=== PATIENT | female | born 2000 | race Caucasian/White ===

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

== ENCOUNTER 2020-04-05 06:35 | Inpatient (IN) | payer MEDICAID ==
[2020-04-05] MEDS ORDERED: Nalbuphine 10 MG/ML Syringe IVPUSH PRN (08:03)
[2020-04-05] MEDS ORDERED: Calcium Carbonate 500 MG Tab.Chew PO PRN (08:03)
[2020-04-05] MEDS ORDERED: Lidocaine 1% 50 ML MDV INJECT ONE (08:03)
[2020-04-05] MEDS ORDERED: Sodium Chloride 0.9% 10 ML Syringe FLUSH PRN (08:03)
[2020-04-05] MEDS ORDERED: Ondansetron 4 MG/2 ML SDV IVPUSH PRN (08:03)
[2020-04-05] MEDS ORDERED: Oxytocin/Lactated Ringers 10 UNIT/1,000 ML BAG IV SCH ×2 (08:15)
--- NOTE | 2020-04-05 08:19 | PCM.LDHP ---
L&D History of Present Illness - General Date of Service: 04/05/20 Admit Problem/Dx: Admission Diagnosis/Problem Admission Diagnosis/Problem 04/05/20 08:09 at 39+ weeks gestation. Encounter for induction of labor Source of Information: Patient History Limitations: Reports: No Limitations - History of Present Illness Introduction:: 19 yo at 39+2 weeks gestation presents for elective induction of labor due to being term. Her was complicated by threatened labor at about 34 weeks and did spend a couple of days in the hospital in [place] and received Betamethasone x 2 doses. She has continued to have intermittent contractions since then, but they settle on their own. She has had some febrile illnesses and has been tested for COVID-19 twice and both times has been negative. No known exposure to a positive case and no symptoms at this time. She has had some upper abdominal pain and GERD and I had started her on pantoprazole. She does have a history of asthma but only uses albuterol occasionally. She has received her Tdap and influenza vaccinations. SHe plans to breastfeed. She is having a boy determined by the [place] test and is wanting to have him circumcised. 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 Her partner was tested and was negative, so baby is low risk for developing the disease (1/54,000) Her labs show blood type O positive, antibody screen negative. Infectious disease screenings were negative. Repeat RPR at 28 weeks was negative. GBS test at 37 weeks was negative. - Related Data Allergies/Adverse Reactions: Allergies Allergy/AdvReac Type Severity Reaction Status Date / Time Penicillins Allergy Intermediate Hives Verified 04/05/20 07:50 Home Medications: Home Meds Albuterol [Ventolin HFA] 1 inh INH ASDIRECTED PRN 10/30/18 [History] Pnv No.103/Folic/Om3s/Fish Oil [ Gummies] 1 each PO DAILY 12/28/19 [ History] Past Medical History - Past Health History Medical/Surgical History: Denies Medical/Surgical History Cardiovascular History: Reports: None, Other (See Below) (She has had episodes of rapid HR and Holter monitor showed only sinus tachycardia. 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: , Spontaneous : 1 Para: 0 Musculoskeletal History: Reports: None Neurological History: Reports: None Psychiatric History: Reports: Anxiety, Bipolar, Depression Endocrine/Metabolic History: Reports: None Hematologic History: Reports: None Immunologic History: Reports: None Oncologic (Cancer) History: Reports: None Dermatologic History: Reports: None - Infectious Disease History Infectious Disease History: Reports: None - Past Surgical History Head Surgeries/Procedures: Reports: None HEENT Surgical History: Reports: Oral Surgery Social & Family History - Family History Family Medical History: Noncontributory - Tobacco Use Smoking Status *Q: Never Smoker Tobacco Use Within Last Twelve Months: No - Caffeine Use Caffeine Use: Reports: Coffee Other Caffeine Use: de caf - Recreational Drug Use Recreational Drug Use: No Drug Use in Last 12 Months: No - Living Situation & Occupation Living situation: Reports: Single, Other (with a roomate) Occupation: Employed ([employer]) H&P Review of Systems - Review of Systems: Review Of Systems: See Below General: Reports: No Symptoms HEENT: Reports: No Symptoms Pulmonary: Reports: No Symptoms Cardiovascular: Reports: No Symptoms Gastrointestinal: Reports: No Symptoms Genitourinary: Reports: No Symptoms Musculoskeletal: Reports: No Symptoms Skin: Reports: No Symptoms Psychiatric: Reports: Anxiety Neurological: Reports: No Symptoms Hematologic/Lymphatic: Reports: No Symptoms Immunologic: Reports: No Symptoms L&D Exam - Exam Exam: See Below - Vital Signs Vital Signs: Last Vital Signs Temp 36.6 C 04/05/20 06:53 Pulse 102 H 04/05/20 06:53 Resp 16 04/05/20 06:53 BP 102/78 04/05/20 06:53 Pulse Ox 99 04/05/20 06:53 Weight: 59.874 kg - OB Specific Contraction Duration (sec): 60 Contraction Frequency (min): 5-7 Contraction Intensity: Mild Movement: Active Heart Tones: Present Heart Tones per Min: 130 Heart Rate (FHR) Variability: Moderate (6-25 bmp) Presentation: Vertex Estimated Weight: 7 lb - Rosales Score Rosales Score Cervix Position: Midposition Rosales Score Consistency: Soft Rosales Score Effacement: >80% Rosales Score Dilation: 3-4 cm Rosales Score 's Station: -1 ,0 Rosales Score Total: 10 - Exam General: Alert, Oriented HEENT: Conjunctiva Clear, Mucosa Moist & [place], Pupils Equal Neck: Supple, Trachea Midline Lungs: Normal Respiratory Effort Cardiovascular: Regular Rate, Regular Rhythm GI/Abdominal Exam: Soft Rectal Exam: Deferred Genitourinary: Normal external exam Back Exam: Normal Inspection, Full Range of Motion Extremities: Normal Inspection, Normal Range of Motion, No Pedal Edema Skin: Warm, Dry, Intact Neurological: Cranial Nerves Intact Psychiatric: Alert, Anxious - Problem List (1) 39 weeks gestation of SNOMED Code(s): 53796707 ICD Code: Z3A.39 - 39 WEEKS GESTATION OF Status: Acute Current Visit: Yes (2) Encounter for elective induction of labor SNOMED Code(s): 307186270 ICD Code: Z34.90 - ENCNTR FOR SUPRVSN OF NORMAL , UNSP, UNSP TRIMESTER Status: Acute Current Visit: Yes (3) Asthma SNOMED Code(s): 328483052 ICD Code: J45.909 - UNSPECIFIED ASTHMA, UNCOMPLICATED Status: Acute Current Visit: Yes (4) Anxiety SNOMED Code(s): 06057340 ICD Code: F41.9 - ANXIETY DISORDER, UNSPECIFIED Status: Acute Current Visit: Yes Problem List Initiated/Reviewed/Updated: Yes Orders Last 24hrs: Active Orders 24 hr Category Date Time Status Activity as Tolerated [RC] PFP Care 04/05/20 08:03 Ordered Communication Order [RC] ASDIRECTED Care 04/05/20 08:03 Ordered Heart Tones [RC] ASDIRECTED Care 04/05/20 08:03 Ordered Non Stress Test [RC] PER UNIT ROUTINE Care 04/05/20 08:03 Ordered Intake and Output [RC] QSHIFT Care 04/05/20 08:04 Ordered Notify Provider [RC] PFP Care 04/05/20 08:03 Ordered Notify Provider [RC] PRN Care 04/05/20 08:03 Ordered Peripheral IV Care [RC] . DIRECTED Care 04/05/20 08:03 Ordered Vital Signs [RC] PER UNIT ROUTINE Care 04/05/20 08:03 Ordered Regular Diet [DIET] Diet 04/05/20 Breakfast Ordered CBC W/O DIFF,HEMOGRAM [HEME] Stat Lab 04/05/20 08:03 Ordered RAPID PLASMA REAGIN,RPR [CHEM] Routine Lab 04/05/20 08:03 Ordered Calcium Carbonate [Tums] Med 04/05/20 08:03 Ordered 1,000 mg PO Q2H PRN Lactated Ringers [Ringers, Lactated] 1,000 ml Med 04/05/20 08:15 Ordered IV ASDIRECTED Lidocaine 1% [Xylocaine 1%] Med 04/05/20 08:03 Once 20 ml INJECT ONETIME ONE Nalbuphine [Nubain] Med 04/05/20 08:03 Ordered 10 mg IVPUSH Q2H PRN Ondansetron [Zofran] Med 04/05/20 08:03 Ordered 4 mg IVPUSH Q4H PRN Oxytocin/Lactated Ringers [Pitocin in LR 10 Units/1,000 Med 04/05/20 08:15 Ordered ML] 10 unit in 1,000 ml IV .CONTINUOUS Oxytocin/Lactated Ringers [Pitocin in LR 10 Units/1,000 Med 04/05/20 08:15 Ordered ML] 10 unit in 1,000 ml IV TITRATE Pantoprazole [ProTONIX] Med 04/05/20 09:00 Ordered 40 mg PO DAILY Sodium Chloride 0.9% [Saline Flush] Med 04/05/20 08:03 Ordered 10 ml FLUSH ASDIRECTED PRN Electronic Heart Tones Ext w TOCO [WOMSER] Ot 04/05/20 08:03 Ordered Routine Electronic Heart Tones Internal [WOMSER] Per Unit Ot 04/05/20 08:03 Ordered Routine Peripheral IV Insertion Adult [OM.PC] Routine Ot 04/05/20 08:03 Ordered Telemetry Monitoring [WOMSER] Routine Ot 04/05/20 08:03 Ordered Resuscitation Status Routine Resus Stat 04/05/20 08:03 Ordered Medication Orders Calcium Carbonate/Glycine (Tums) 1,000 mg PO Q2H PRN PRN Reason: Indigestion Lactated Ringer's (Ringers, Lactated) 1,000 mls @ 100 mls/hr IV ASDIRECTED SERVANDO Oxytocin/Lactated Ringer's (Pitocin In Lr 10 Units/1,000 Ml) 10 unit in 1,000 mls @ 12 mls/hr IV TITRATE SERVANDO; Protocol Oxytocin/Lactated Ringer's (Pitocin In Lr 10 Units/1,000 Ml) 10 unit in 1,000 mls @ 500 mls/hr IV .CONTINUOUS SERVANDO Lidocaine HCl (Xylocaine 1%) 20 ml INJECT ONETIME ONE Stop: 04/05/20 08:04 Nalbuphine HCl (Nubain) 10 mg IVPUSH Q2H PRN PRN Reason: Pain Ondansetron HCl (Zofran) 4 mg IVPUSH Q4H PRN PRN Reason: Nausea/Vomiting Pantoprazole Sodium (Protonix) 40 mg PO DAILY SERVANDO Sodium Chloride (Saline Flush) 10 ml FLUSH ASDIRECTED PRN PRN Reason: Keep Vein Open Assessment/Plan Comment:: 19 yo at 39+2 weeks gestation admitted for elective induction of labor. She has a favorable cervix. She is having some mild contractions, about every 5 to 7 minutes, but they are not painful for her. Baby has been active. NST is reactive. GBS is negative. Blood type O+. Plan: Pitocin induction of labor. Will plan AROM to augment once having a good contraction pattern. Expectant management of labor. Anticipate vaginal delivery. Plan for skin to skin after delivery and . Parents requesting circumcision on baby.
[2020-04-05] MEDS: Lactated Ringers 1,000 ML IV SCH ×3 (08:21→15:15)
[2020-04-05] MEDS ORDERED: Albuterol 6.7 GM Inhaler INH PRN (08:32)
[2020-04-05] MEDS ORDERED: Pantoprazole 40 MG Tab.CR PO SCH (09:00)
--- NOTE | 2020-04-05 12:44 | PCM.PNLD ---
Labor Progress Note - VS & Meds Vital Signs: Last Vital Signs Temp 36.6 C 04/05/20 06:53 Pulse 102 H 04/05/20 06:53 Resp 16 04/05/20 06:53 BP 102/78 04/05/20 06:53 Pulse Ox 99 04/05/20 06:53 Active Medications: Current Medications Albuterol (Proventil Hfa) 0 gm INH Q4H PRN PRN Reason: Shortness of Breath Calcium Carbonate/Glycine (Tums) 1,000 mg PO Q2H PRN PRN Reason: Indigestion Lactated Ringer's (Ringers, Lactated) 1,000 mls @ 100 mls/hr IV ASDIRECTED SERVANDO Last Admin: 04/05/20 08:21 Dose: 100 mls/hr Oxytocin/Lactated Ringer's (Pitocin In Lr 10 Units/1,000 Ml) 10 unit in 1,000 mls @ 12 mls/hr IV TITRATE SERVANDO; Protocol Last Titration: 04/05/20 11:13 Dose: 10 munits/min, 60 mls/hr Oxytocin/Lactated Ringer's (Pitocin In Lr 10 Units/1,000 Ml) 10 unit in 1,000 mls @ 500 mls/hr IV .CONTINUOUS SERVANDO Nalbuphine HCl (Nubain) 10 mg IVPUSH Q2H PRN PRN Reason: Pain Ondansetron HCl (Zofran) 4 mg IVPUSH Q4H PRN PRN Reason: Nausea/Vomiting Pantoprazole Sodium (Protonix) 40 mg PO DAILY SERVANDO Last Admin: 04/05/20 09:03 Dose: Not Given Sodium Chloride (Saline Flush) 10 ml FLUSH ASDIRECTED PRN PRN Reason: Keep Vein Open Discontinued Medications Lidocaine HCl (Xylocaine 1%) 20 ml INJECT ONETIME ONE Stop: 04/05/20 08:04 - Uterine Contractions Uterine Monitoring Mode: External [place] Contraction Frequency (min): 2 to 4 Contraction Duration (sec): 60 Contraction Intensity: Mild to Moderate Uterine Resting Tone: Soft - Monitoring Monitor Mode: External Ultrasound Heart Rate (FHR) Baseline: 135 Heart Rate (FHR) Variability: Moderate (6-25 bmp) Accelerations: Present, 15x15 Decelerations: None Strip Review: Category I - Vaginal Exam Dilation (cm): 3-4 cm Effacement (Percent): 80 Station: -1 Cervical Position: Midposition Sterile Vaginal Exam Performed By: Honey Coreas - Labor Progress (Free Text) Labor Progress: Patient feels that the contractions are getting stronger, but still tolerable. She doesn't have to breathe through them. She has been up on the ball. monitor has been Category I. Contractions are 2-4 minutes apart. AROM performed at about 1230 for moderate amount of clear fluid. Cervix 3-4 cm , 80% effaced and station -1. A: Latent phase of labor, fetus is tolerating labor. P: AROM to augment labor. Pitocin currently at 10 mU/min. Expectant management of labor. Epidural if patient requests. Anticipate vaginal delivery.
[2020-04-05] MEDS ORDERED: Bupivacaine/fentaNYL/NS 100 ML Bag EPIDUR SCH (13:45)
[2020-04-05] MEDS ORDERED: diphenhydrAMINE 50 MG/ML SDV IVPUSH PRN (13:46)
[2020-04-05] MEDS ORDERED: fentaNYL 100 MCG/2 ML SDV EPIDUR PRN (13:46)
[2020-04-05] MEDS ORDERED: Bupivacaine/fentaNYL/NS 100 ML Bag EPIDUR PRN (13:46)
[2020-04-05] MEDS ORDERED: ePHEDrine 50 MG/ML SDV IVPUSH PRN (13:46)
--- NOTE | 2020-04-05 14:33 | PCM.PREANE ---
Preanesthetic Assessment - Procedure Proposed Procedure: TAN - Anesthesia/Transfusion/Family Hx Anesthesia History: Prior Anesthesia Without Reaction Family History of Anesthesia Reaction: No Transfusion History: No Prior Transfusion(s) - Review of Systems General: No Symptoms Pulmonary: No Symptoms Cardiovascular: No Symptoms Gastrointestinal: No Symptoms Neurological: No Symptoms Other: Reports: None - Physical Assessment Vital Signs: Last Vital Signs Temp 36.6 C 04/05/20 06:53 Pulse 102 H 04/05/20 06:53 Resp 16 04/05/20 06:53 BP 102/78 04/05/20 06:53 Pulse Ox 99 04/05/20 06:53 Height: 1.7 m Weight: 59.874 kg ASA Class: 2 Mental Status: Alert & Oriented x3 Airway Class: Mallampati = 1 Dentition: Reports: Normal Dentition Thyro-Mental Finger Breadths: 3 Mouth Opening Finger Breadths: 3 ROM/Head Extension: Full Lungs: Clear to Auscultation, Normal Respiratory Effort Cardiovascular: Regular Rate, Regular Rhythm - Lab Values: Laboratory Last Values WBC 8.92 K/mm3 (3.98-10.04) 04/05/20 08:16 RBC 3.28 M/mm3 (3.98-5.22) L 04/05/20 08:16 Hgb 9.7 gm/dl (11.2-15.7) L D 04/05/20 08:16 Hct 29.4 % (34.1-44.9) L 04/05/20 08:16 MCV 89.6 fl (79.4-94.8) 04/05/20 08:16 MCH 29.6 pg (25.6-32.2) 04/05/20 08:16 MCHC 33.0 g/dl (32.2-35.5) 04/05/20 08:16 RDW Std Deviation 40.7 fL (36.4-46.3) 04/05/20 08:16 Plt Count 264 K/mm3 (182-369) 04/05/20 08:16 MPV 10.4 fl (9.4-12.3) 04/05/20 08:16 - Allergies Allergies/Adverse Reactions: Allergies Allergy/AdvReac Type Severity Reaction Status Date / Time Penicillins Allergy Intermediate Hives Verified 04/05/20 07:50 - Acknowledgements Anesthesia Type Planned: Epidural Pt an Appropriate Candidate for the Planned Anesthesia: Yes Alternatives and Risks of Anesthesia Discussed w Pt/Guardian: Yes Pt/Guardian Understands and Agrees with Anesthesia Plan: Yes PreAnesthesia Questionnaire - Past Health History Medical/Surgical History: Denies Medical/Surgical History Cardiovascular History: Reports: None, Other (See Below) (She has had episodes of rapid HR and Holter monitor showed only sinus tachycardia. 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 It is good for 3 years she reports will not have to be changed until 2019 Musculoskeletal History: Reports: None Neurological History: Reports: None Psychiatric History: Reports: Anxiety, Bipolar, Depression Endocrine/Metabolic History: Reports: None Hematologic History: Reports: None Immunologic History: Reports: None Oncologic (Cancer) History: Reports: None Dermatologic History: Reports: None - Infectious Disease History Infectious Disease History: Reports: None - Past Surgical History Head Surgeries/Procedures: Reports: None HEENT Surgical History: Reports: Oral Surgery - SUBSTANCE USE Smoking Status *Q: Never Smoker Tobacco Use Within Last Twelve Months: No Second Hand Smoke Exposure: No Recreational Drug Use History: No - HOME MEDS Home Medications: Home Meds Albuterol [Ventolin HFA] 1 inh INH ASDIRECTED PRN 10/30/18 [History] Pnv No.103/Folic/Om3s/Fish Oil [ Gummies] 1 each PO DAILY 12/28/19 [ History] - CURRENT (IN HOUSE) MEDS Current Meds: Current Medications Albuterol (Proventil Hfa) 0 gm INH Q4H PRN PRN Reason: Shortness of Breath Calcium Carbonate/Glycine (Tums) 1,000 mg PO Q2H PRN PRN Reason: Indigestion Diphenhydramine HCl (Benadryl) 25 mg IVPUSH Q6H PRN PRN Reason: pruritis Ephedrine Sulfate (Ephedrine Sulfate) 5 mg IVPUSH ASDIRECTED PRN PRN Reason: Hypotension Fentanyl (Sublimaze) 100 mcg EPIDUR Q3H PRN PRN Reason: Pain Last Admin: 04/05/20 13:55 Dose: 100 mcg Fentanyl/Bupivacaine HCl (Fentanyl/Bupivacaine/Ns 2 Mcg-0.125% 100 Ml) 100 ml EPIDUR ASDIRECTED PRN PRN Reason: Pain Last Admin: 04/05/20 13:56 Dose: 100 ml Lactated Ringer's (Ringers, Lactated) 1,000 mls @ 100 mls/hr IV ASDIRECTED SERVANDO Last Admin: 04/05/20 13:52 Dose: 100 mls/hr Oxytocin/Lactated Ringer's (Pitocin In Lr 10 Units/1,000 Ml) 10 unit in 1,000 mls @ 12 mls/hr IV TITRATE SERVANDO; Protocol Last Titration: 04/05/20 11:13 Dose: 10 munits/min, 60 mls/hr Oxytocin/Lactated Ringer's (Pitocin In Lr 10 Units/1,000 Ml) 10 unit in 1,000 mls @ 500 mls/hr IV .CONTINUOUS SERVANDO Nalbuphine HCl (Nubain) 10 mg IVPUSH Q2H PRN PRN Reason: Pain Ondansetron HCl (Zofran) 4 mg IVPUSH Q4H PRN PRN Reason: Nausea/Vomiting Pantoprazole Sodium (Protonix) 40 mg PO DAILY [facility] Last Admin: 04/05/20 09:03 Dose: Not Given Sodium Chloride (Saline Flush) 10 ml FLUSH ASDIRECTED PRN PRN Reason: Keep Vein Open Discontinued Medications Fentanyl/Bupivacaine HCl (Fentanyl/Bupivacaine/Ns 2 Mcg-0.125% 100 Ml) 100 ml EPIDUR ASDIRECTED [facility] Lidocaine HCl (Xylocaine 1%) 20 ml INJECT ONETIME ONE Stop: 04/05/20 08:04
[2020-04-05] MEDS ORDERED: Lidocaine 1% 50 ML MDV ONE (17:34)
[2020-04-05] MEDS ORDERED: Docusate Sodium 100 MG Cap PO PRN (18:31)
[2020-04-05] MEDS ORDERED: Simethicone 80 MG Tab.Chew PO PRN (18:31)
[2020-04-05] MEDS ORDERED: Benzocaine/Menthol 20%-0.5% Spray 56 GM Canister TOP PRN (18:31)
[2020-04-05] MEDS ORDERED: Acetaminophen 325 MG Tab PO PRN (18:31)
[2020-04-05] MEDS ORDERED: Aluminum Hydroxide/Magnesium Hydroxide/Simethicone Susp 30 ML Cup PO PRN (18:31)
[2020-04-05] MEDS ORDERED: Witch Hazel Medicated Pads 40/Jar TOP PRN (18:31)
--- NOTE | 2020-04-05 18:39 | PCM.DEL ---
L & D Note - General Info Date of Service: 04/05/20 Mother's Due Date: 04/10/20 - Delivery Note Labor: Induced by Oxytocin Delivery Outcome: Livebirth Delivery Method: Spontaneous Vaginal Delivery-Single Infant Delivery Mode: Spontaneous Presentation: Left Occiput Anterior (ARLETH) Nuchal Cord: Present Prep: Povidone-Iodine (Betadine Anesthesia Type: Epidural Amniotic Fluid Description: Clear Episiotomy Type: None Laceration: 2nd Degree, Labial (Right labial) Suture type: Vicryl Suture size: 4-0 (4-0 on labial tear) Placenta: Intact, Spontaneous Cord: 3 Vessels Estimated Blood Loss: 300 Resuscitation Needed: No : Bulb Syringe, Stimulated, Warmed, [place] Used Provider: Honey Coreas Score 1 min: 8 Score 5 min: 9 Delivery Comments (Free Text/Narrative):: 19 yo at 39+2 weeks gestation presents for elective induction of labor due to being term. Her was complicated by threatened labor at about 34 weeks and did spend a couple of days in the hospital in [place] and received Betamethasone x 2 doses. She has continued to have intermittent contractions since then, but they settle on their own. She has had some febrile illnesses and has been tested for COVID-19 twice and both times has been negative. No known exposure to a positive case and no symptoms at this time. She has had some upper abdominal pain and GERD and I had started her on pantoprazole. She does have a history of asthma but only uses albuterol occasionally. She has received her Tdap and influenza vaccinations. SHe plans to breastfeed. She is having a boy determined by the [employer] test and is wanting to have him circumcised. 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 Her partner was tested and was negative, so baby is low risk for developing the disease (1/54,000) Her labs show blood type O positive, antibody screen negative. Infectious disease screenings were negative. Repeat RPR at 28 weeks was negative. GBS test at 37 weeks was negative. She was started on pitocin induction per protocol shortly after 8:00 am, AROM was performed at 1230 to augment labor. Moderate amount of clear fluid drained. Her pitocin was at 10 mU/min at that time. Her contractions increased in intensity and regularity with that and she requested an epidural. Epidural was placed and dosed at 1415. Her pitocin was decreased to 6 mU/min due to hyperstimulation. She had good relief with the epidural and progressed well. Fetus tolerated 1st stage of labor. She was completely dilated at 1705 and I was called in. We got her prepped and started pushing at 1718. She pushed very well and baby tolerated second stage of labor. Head delivered from ARLETH presentation and there was a loose nuchal cord that easily slipped over baby 's head. The shoulders delivered without any difficulty. Time of delivery was 1727 and it was baby boy. He was dried and stimulated and the mouth and nose were suctioned with bulb suction. He cried at the perineum. He was placed skin to skin on mother's abdomen and once the cord stopped pulsating, the clamp was placed and cord was cut. Apgars were 8 and 9 at 1 and 5 minutes respectively. Baby weighed 7 lb 1 oz (3210 grams). Placenta delivered spontaneously at 1731. It was intact and there were 3 vessels in the cord. Uterus firmed down nicely. Pitocin infusion was started after delivery of the baby. There was a second degree perineal laceration that was repaired in the usual manner with 3-0 vicryl. There was also a right labial tear that was repaired with 4-0 vicryl in a running subcuticular stitch. Bimanual exam was performed after repair was complete and some blood clots were expressed from the uterus and it was firm. EBL 300 ml. Both Mom and baby were left in the delivery room in stable condition. Mom plans to breastfeed. Induction Criteria - Rosales Score Rosales Score Dilation: 3-4 cm Rosales Score Effacement: >80% Rosales Score 's Station: -1 ,0 Rosales Score Consistency: Soft Rosales Score Cervix Position: Midposition Rosales Score Total: 10 Rosales Score Presenting Part: Reports: Cephalic - Induction Gestational Age >/= 39 wks: Yes Estimated Pelvis: Reports: Adequate Reassuring Monitoring Strip: Yes Absence of Tachy Systole: Yes - General Info Date of Service: 04/05/20 Admission Dx/Problem (Free Text): Admission Diagnosis/Problem Admission Diagnosis/Problem 04/05/20 08:09 at 39+ weeks gestation. Encounter for induction of labor - Review of Systems General: Reports: No Symptoms HEENT: Reports: No Symptoms Pulmonary: Reports: No Symptoms Cardiovascular: Reports: No Symptoms Gastrointestinal: Reports: No Symptoms Genitourinary: Reports: No Symptoms Musculoskeletal: Reports: No Symptoms Skin: Reports: No Symptoms Neurological: Reports: No Symptoms Psychiatric: Reports: No Symptoms - Patient Data Vitals - Most Recent: Last Vital Signs Temp 36.6 C 04/05/20 06:53 Pulse 102 H 04/05/20 06:53 Resp 16 04/05/20 06:53 BP 102/78 04/05/20 06:53 Pulse Ox 99 04/05/20 06:53 Weight - Most Recent: 59.874 kg I&O - Last 24 Hours: Intake & Output 04/05/20 04/05/20 04/05/20 06:59 14:59 22:59 Intake Total 120 Balance 120 Lab Results Last 24 Hours: Laboratory Results - last 24 hr 04/05/20 Range/Units 08:16 WBC 8.92 (3.98-10.04) K/mm3 RBC 3.28 L (3.98-5.22) M/mm3 Hgb 9.7 L D (11.2-15.7) gm/dl Hct 29.4 L (34.1-44.9) % MCV 89.6 (79.4-94.8) fl MCH 29.6 (25.6-32.2) pg MCHC 33.0 (32.2-35.5) g/dl RDW Std Deviation 40.7 (36.4-46.3) fL Plt Count 264 (182-369) K/mm3 MPV 10.4 (9.4-12.3) fl Med Orders - Current: Current Medications Albuterol (Proventil Hfa) 0 gm INH Q4H PRN PRN Reason: Shortness of Breath Calcium Carbonate/Glycine (Tums) 1,000 mg PO Q2H PRN PRN Reason: Indigestion Diphenhydramine HCl (Benadryl) 25 mg IVPUSH Q6H PRN PRN Reason: pruritis Ephedrine Sulfate (Ephedrine Sulfate) 5 mg IVPUSH ASDIRECTED PRN PRN Reason: Hypotension Fentanyl (Sublimaze) 100 mcg EPIDUR Q3H PRN PRN Reason: Pain Last Admin: 04/05/20 13:55 Dose: 100 mcg Fentanyl/Bupivacaine HCl (Fentanyl/Bupivacaine/Ns 2 Mcg-0.125% 100 Ml) 100 ml EPIDUR ASDIRECTED PRN PRN Reason: Pain Last Admin: 04/05/20 13:56 Dose: 100 ml Lactated Ringer's (Ringers, Lactated) 1,000 mls @ 100 mls/hr IV ASDIRECTED SERVANDO Last Admin: 04/05/20 15:15 Dose: 100 mls/hr Oxytocin/Lactated Ringer's (Pitocin In Lr 10 Units/1,000 Ml) 10 unit in 1,000 mls @ 12 mls/hr IV TITRATE SERVANDO; Protocol Last Titration: 04/05/20 15:15 Dose: 8 munits/min, 48 mls/hr Oxytocin/Lactated Ringer's (Pitocin In Lr 10 Units/1,000 Ml) 10 unit in 1,000 mls @ 500 mls/hr IV .CONTINUOUS SERVANDO Nalbuphine HCl (Nubain) 10 mg IVPUSH Q2H PRN PRN Reason: Pain Ondansetron HCl (Zofran) 4 mg IVPUSH Q4H PRN PRN Reason: Nausea/Vomiting Pantoprazole Sodium (Protonix) 40 mg PO DAILY SERV[facility]O Last Admin: 04/05/20 09:03 Dose: Not Given Sodium Chloride (Saline Flush) 10 ml FLUSH ASDIRECTED PRN PRN Reason: Keep Vein Open Discontinued Medications Fentanyl/Bupivacaine HCl (Fentanyl/Bupivacaine/Ns 2 Mcg-0.125% 100 Ml) 100 ml EPIDUR ASDIRECTED [facility] Lidocaine HCl (Xylocaine 1%) 20 ml INJECT ONETIME ONE Stop: 04/05/20 08:04 Lidocaine HCl (Xylocaine 1%) Confirm Administered Dose 50 ml .ROUTE .STK-MED ONE Stop: 04/05/20 17:35 - Exam General: Alert, Oriented, No Acute Distress HEENT: Pupils Equal, Mucous Membr. Moist/Anita Neck: Supple Lungs: Normal Respiratory Effort Cardiovascular: Regular Rate, Regular Rhythm GI/Abdominal Exam: Normal Bowel Sounds (Female) Exam: Normal Bimanual Exam, Vaginal Bleeding Back Exam: Normal Inspection, Full Range of Motion Extremities: Normal Inspection, Normal Range of Motion, Non-Tender, No Pedal Edema Skin: Warm, Dry, Intact Neurological: No New Focal Deficit Psy/Mental Status: Alert, Normal Affect, Normal Mood - Problem List & Annotations (1) 39 weeks gestation of SNOMED Code(s): 68010527 Code(s): Z3A.39 - 39 WEEKS GESTATION OF Status: Acute Current Visit: Yes (2) Encounter for elective induction of labor SNOMED Code(s): 799690607 Code(s): Z34.90 - ENCNTR FOR SUPRVSN OF NORMAL , UNSP, UNSP TRIMESTER Status: Acute Current Visit: Yes (3) Asthma SNOMED Code(s): 795155856 Code(s): J45.909 - UNSPECIFIED ASTHMA, UNCOMPLICATED Status: Acute Current Visit: Yes (4) Anxiety SNOMED Code(s): 79727750 Code(s): F41.9 - ANXIETY DISORDER, UNSPECIFIED Status: Acute Current Visit: Yes (5) Normal spontaneous vaginal delivery SNOMED Code(s): 69866227, 116093934 Code(s): O80 - ENCOUNTER FOR FULL-TERM UNCOMPLICATED DELIVERY Status: Acute Current Visit: Yes (6) Breast feeding status of mother SNOMED Code(s): 236614523 Code(s): Z39.1 - ENCOUNTER FOR CARE AND EXAMINATION OF LACTATING MOTHER Status: Acute Current Visit: Yes - Problem List Review Problem List Initiated/Reviewed/Updated: Yes - My Orders Last 24 Hours: My Active Orders 04/05/20 08:03 Activity as Tolerated [RC] PFP Communication Order [RC] ASDIRECTED Heart Tones [RC] ASDIRECTED Non Stress Test [RC] PER UNIT ROUTINE Notify Provider [RC] PFP Notify Provider [RC] PRN Peripheral IV Care [RC] . DIRECTED Vital Signs [RC] PER UNIT ROUTINE Calcium Carbonate [Tums] 1,000 mg PO Q2H PRN Nalbuphine [Nubain] 10 mg IVPUSH Q2H PRN Ondansetron [Zofran] 4 mg IVPUSH Q4H PRN Sodium Chloride 0.9% [Saline Flush] 10 ml FLUSH ASDIRECTED PRN Electronic Heart Tones Ext w TOCO [WOMSER] Routine Electronic Heart Tones Internal [WOMSER] Per Unit Routine Peripheral IV Insertion Adult [OM.PC] Routine Telemetry Monitoring [WOMSER] Routine Resuscitation Status Routine 04/05/20 08:04 Intake and Output [RC] QSHIFT 04/05/20 08:15 Lactated Ringers [Ringers, Lactated] 1,000 ml IV ASDIRECTED Oxytocin/Lactated Ringers [Pitocin in LR 10 Units/1,000 ML] 10 unit in 1,000 ml IV .CONTINUOUS Oxytocin/Lactated Ringers [Pitocin in LR 10 Units/1,000 ML] 10 unit in 1,000 ml IV TITRATE 04/05/20 08:16 RAPID PLASMA REAGIN,RPR [CHEM] Routine 04/05/20 08:32 Albuterol [Proventil HFA] See Dose Instructions INH Q4H PRN 04/05/20 08:33 RT Post Treatment Assessment [RC] Click to Edit RT Pre-Treatment Assessment [RC] Click to Edit 04/05/20 09:00 Pantoprazole [ProTONIX] 40 mg PO DAILY 04/05/20 18:11 Patient Status Manage Transfer [TRANSFER] Routine 04/05/20 Breakfast Regular Diet [DIET] - Assessment Assessment:: Normal spontaneous vaginal delivery. Stable. Plans to breast feed. GBS negative. - Plan Plan:: 19 yo at 39+2 weeks gestation admitted for elective induction of labor. She has a favorable cervix. She is having some mild contractions, about every 5 to 7 minutes, but they are not painful for her. Baby has been active. NST is reactive. GBS is negative. Blood type O+. Pitocin induction with AROM to augment. Epidural gave good analgesia. Spontaneous vaginal delivery at 1727 for healthy baby boy with weight of 7 lb 1 oz. Plan: 1. Routine care 2. Mom plans to breastfeed, but has inverted nipples. Baby did latch and nurse in the delivery room.
[2020-04-05] MEDS: Ibuprofen 800 MG Tab PO PRN (22:23)
[2020-04-06] MEDS ORDERED: Prenatal Multivitamin with Calcium/Folic Acid/Iron Tab PO SCH (09:00)
--- NOTE | 2020-04-06 09:39 | PCM48HPAN ---
Post Anesthesia Note - EVALUATION WITHIN 48HRS OF ANESTHETIC Vital Signs in Normal Range: Yes Patient Participated in Evaluation: Yes Respiratory Function Stable: Yes Airway Patent: Yes Cardiovascular Function Stable: Yes Hydration Status Stable: Yes Pain Control Satisfactory: Yes Nausea and Vomiting Control Satisfactory: Yes Mental Status Recovered: Yes Vital Signs: Last Vital Signs Temp 36.4 C 04/06/20 04:43 Pulse 83 04/06/20 04:43 Resp 14 04/06/20 04:43 BP 101/59 L 04/06/20 04:43 Pulse Ox 100 04/06/20 04:43 - COMMENTS/OBSERVATIONS Free Text/Narrative:: Epidural worked well. Minimal soreness at insertions site. Legs good motor movement and sensation. Denies Headache.
--- NOTE | 2020-04-06 10:18 | PCM.PNPP ---
- General Info Date of Service: 04/06/20 Admission Dx/Problem (Free Text): Admission Diagnosis/Problem Admission Diagnosis/Problem 04/05/20 08:09 at 39+ weeks gestation. Encounter for induction of labor Subjective Update: Patient is doing well, SHe passed a couple of clots last night, but none this am. Voiding well. Eating and ambulating well. Has some cramping that is relieved with ibuprofen. She is bonding well with baby and working on . Has been very patient with baby. Her nipples are inverted and she denies soreness at this time. Mild tenderness at epidural site. Denies headache, dizziness or SOB. Functional Status: Reports: Pain Controlled, Tolerating Diet, Ambulating, Urinating - Review of Systems General: Reports: No Symptoms HEENT: Reports: No Symptoms Pulmonary: Reports: No Symptoms Cardiovascular: Reports: No Symptoms Gastrointestinal: Reports: No Symptoms Genitourinary: Reports: No Symptoms Musculoskeletal: Reports: Back Pain (mild at epidural site) Skin: Reports: No Symptoms Neurological: Reports: No Symptoms Psychiatric: Reports: No Symptoms - General Info Date of Service: 04/06/20 - Patient Data Vital Signs - Most Recent: Last Vital Signs Temp 36.4 C 04/06/20 04:43 Pulse 83 04/06/20 04:43 Resp 14 04/06/20 04:43 BP 101/59 L 04/06/20 04:43 Pulse Ox 100 04/06/20 04:43 Weight - Most Recent: 59.874 kg I&O - Last 24 Hours: Intake & Output 04/05/20 04/06/20 04/06/20 22:59 06:59 14:59 Intake Total 120 Output Total 650 Balance -530 Lab Results - Last 24 Hours: Laboratory Results - last 24 hr 04/05/20 04/06/20 Range/Units 08:16 05:53 WBC 11.30 H (3.98-10.04) K/mm3 RBC 2.93 L (3.98-5.22) M/mm3 Hgb 8.7 L (11.2-15.7) gm/dl Hct 26.6 L (34.1-44.9) % MCV 90.8 (79.4-94.8) fl MCH 29.7 (25.6-32.2) pg MCHC 32.7 (32.2-35.5) g/dl RDW Std Deviation 40.3 (36.4-46.3) fL Plt Count 241 (182-369) K/mm3 MPV 10.4 (9.4-12.3) fl Neut % (Auto) 72.9 H (34.0-71.1) % Lymph % (Auto) 16.7 L (19.3-51.7) % Braxton % (Auto) 8.5 (4.7-12.5) % Eos % (Auto) 1.5 (0.7-5.8) Baso % (Auto) 0.1 (0.1-1.2) % Neut # (Auto) 8.24 H (1.56-6.13) K/mm3 Lymph # (Auto) 1.89 (1.18-3.74) K/mm3 Braxton # (Auto) 0.96 H (0.24-0.36) K/mm3 Eos # (Auto) 0.17 (0.04-0.36) K/mm3 Baso # (Auto) 0.01 (0.01-0.08) K/mm3 RPR Non-reactive (NONREACTIVE) Med Orders - Current: Current Medications Acetaminophen (Tylenol) 650 mg PO Q4H PRN PRN Reason: mild pain or fever Al Hydroxide/Mg Hydroxide (Mag-Al Plus) 30 ml PO Q8H PRN PRN Reason: Heartburn Albuterol (Proventil Hfa) 0 gm INH Q4H PRN PRN Reason: Shortness of Breath Benzocaine/Menthol (Dermoplast Pain Relief [place]) 0 gm TOP ASDIRECTED PRN PRN Reason: Perineal Comfort Measure Docusate Sodium (Colace) 100 mg PO BID PRN PRN Reason: Constipation Last Admin: 04/05/20 22:24 Dose: 100 mg Ibuprofen (Motrin) 800 mg PO Q6H PRN PRN Reason: Mild pain or fever Last Admin: 04/05/20 22:23 Dose: 800 mg Prenat Multivit/Sterilization Technician/Iron/Folic Ac ( Plus Iron) 1 each PO DAILY SERVANDO Simethicone (Simethicone) 80 mg PO Q4H PRN PRN Reason: Gas Sodium Chloride (Saline Flush) 10 ml FLUSH ASDIRECTED PRN PRN Reason: Keep Vein Open Witch Lucian (Tucks) 1 pad TOP ASDIRECTED PRN PRN Reason: Perineal Comfort Measure Discontinued Medications Calcium Carbonate/Glycine (Tums) 1,000 mg PO Q2H PRN PRN Reason: Indigestion Diphenhydramine HCl (Benadryl) 25 mg IVPUSH Q6H PRN PRN Reason: pruritis Ephedrine Sulfate (Ephedrine Sulfate) 5 mg IVPUSH ASDIRECTED PRN PRN Reason: Hypotension Fentanyl (Sublimaze) 100 mcg EPIDUR Q3H PRN PRN Reason: Pain Last Admin: 04/05/20 13:55 Dose: 100 mcg Fentanyl/Bupivacaine HCl (Fentanyl/Bupivacaine/Ns 2 Mcg-0.125% 100 Ml) 100 ml EPIDUR ASDIRECTED SERVANDO Fentanyl/Bupivacaine HCl (Fentanyl/Bupivacaine/Ns 2 Mcg-0.125% 100 Ml) 100 ml EPIDUR ASDIRECTED PRN PRN Reason: Pain Last Admin: 04/05/20 13:56 Dose: 100 ml Lactated Ringer's (Ringers, Lactated) 1,000 mls @ 100 mls/hr IV ASDIRECTED SERVANDO Last Admin: 04/05/20 15:15 Dose: 100 mls/hr Oxytocin/Lactated Ringer's (Pitocin In Lr 10 Units/1,000 Ml) 10 unit in 1,000 mls @ 12 mls/hr IV TITRATE SERVANDO; Protocol Last Titration: 04/05/20 15:15 Dose: 8 munits/min, 48 mls/hr Oxytocin/Lactated Ringer's (Pitocin In Lr 10 Units/1,000 Ml) 10 unit in 1,000 mls @ 500 mls/hr IV .CONTINUOUS SERVANDO Lidocaine HCl (Xylocaine 1%) 20 ml INJECT ONETIME ONE Stop: 04/05/20 08:04 Lidocaine HCl (Xylocaine 1%) Confirm Administered Dose 50 ml .ROUTE .STK-MED ONE Stop: 04/05/20 17:35 Nalbuphine HCl (Nubain) 10 mg IVPUSH Q2H PRN PRN Reason: Pain Ondansetron HCl (Zofran) 4 mg IVPUSH Q4H PRN PRN Reason: Nausea/Vomiting Pantoprazole Sodium (Protonix) 40 mg PO DAILY SERVANDO Last Admin: 04/05/20 09:03 Dose: Not Given - Interaction Infant Disposition, : [place] in Room with Family Infant Interaction: Holding Infant Feeding: Attempted ; Nursed Fair/Poor Support Person: Significant Other - Recovery Exam Fundal Tone: Firm Fundal Level: 1 Fingerbreadths Below Umbilicus Fundal Placement: Midline Lochia Amount: Scant Lochia Color: Rubra/Red Perineum Description: Other (see below) Other Perinuem Description: 2nd degree w/repair Episiotomy/Laceration: Approximated Bladder Status: Nonpalpable, Voiding Urinary Elimination: Voided - Exam General: Alert, Oriented, Cooperative, No Acute Distress HEENT: Pupils Equal, Mucous Membr. Moist/[place] Neck: Supple Lungs: Normal Respiratory Effort Cardiovascular: Regular Rate, Regular Rhythm GI/Abdominal Exam: Normal Bowel Sounds, Soft, Non-Tender, No Distention Extremities: Normal Inspection, Non-Tender, No Pedal Edema Skin: Warm, Dry, Intact Wound/Incisions: Healing Well Neurological: No New Focal Deficit Psy/Mental Status: Alert, Normal Affect, Normal Mood Physical Findings Comment:: Mild tenderness at epidural site. No swelling or bruising noted. - Problem List & Annotations (1) 39 weeks gestation of SNOMED Code(s): 29291904 Code(s): Z3A.39 - 39 WEEKS GESTATION OF Status: Acute Current Visit: Yes (2) Encounter for elective induction of labor SNOMED Code(s): 654052910 Code(s): Z34.90 - ENCNTR FOR SUPRVSN OF NORMAL , UNSP, UNSP TRIMESTER Status: Acute Current Visit: Yes (3) Asthma SNOMED Code(s): 234580059 Code(s): J45.909 - UNSPECIFIED ASTHMA, UNCOMPLICATED Status: Acute Current Visit: Yes (4) Anxiety SNOMED Code(s): 00285924 Code(s): F41.9 - ANXIETY DISORDER, UNSPECIFIED Status: Acute Current Visit: Yes (5) Normal spontaneous vaginal delivery SNOMED Code(s): 84080988, 463341120 Code(s): O80 - ENCOUNTER FOR FULL-TERM UNCOMPLICATED DELIVERY Status: Acute Current Visit: Yes (6) Breast feeding status of mother SNOMED Code(s): 258257246 Code(s): Z39.1 - ENCOUNTER FOR CARE AND EXAMINATION OF LACTATING MOTHER Status: Acute Current Visit: Yes (7) Inverted nipple SNOMED Code(s): 30796528 Code(s): N64.59 - OTHER SIGNS AND SYMPTOMS IN BREAST Status: Acute Current Visit: Yes - Problem List Review Problem List Initiated/Reviewed/Updated: Yes - My Orders Last 24 Hours: My Active Orders 04/05/20 18:31 Patient Status [ADT] Routine Activity as Tolerated [RC] PER UNIT ROUTINE May Shower [RC] ASDIRECTED Up ad Muriel [RC] ASDIRECTED Vital Signs [RC] 21,03,09,15 Acetaminophen [Tylenol] 650 mg PO Q4H PRN Alum Hydrox/Mag Hydrox/Simeth [Mag-Al Plus] 30 ml PO Q8H PRN Benzocaine/Menthol [Dermoplast Pain Relief [place]] See Dose Instructions TOP ASDIRECTED PRN Docusate Sodium [Colace] 100 mg PO BID PRN Ibuprofen [Motrin] 800 mg PO Q6H PRN Simethicone 80 mg PO Q4H PRN witch Lucian [Tucks] 1 pad TOP ASDIRECTED PRN Assess Lochia [WOMSER] Per Unit Routine Assess Uterine Involution [WOMSER] Per Unit Routine Breast Pump [WOMSER] Per Unit Routine Heat Therapy [OM.PC] PRN Medication Administration Instruction [OM.PC] Routine Perineal Care [OM.PC] Per Unit Routine Peripheral IV Discontinue [OM.PC] Routine Sitz Bath [OM.PC] Per Unit Routine 04/06/20 09:00 Vit with Ca/FA/Iron [ Plus Iron] 1 each PO DAILY 04/06/20 18:31 Heat Therapy [OM.PC] PRN - Assessment Assessment:: Normal spontaneous vaginal delivery. Stable. Working on . Vaginal bleeding is slowing, fundus is firm. - Plan Plan:: 19 yo at 39+2 weeks gestation admitted for elective induction of labor. She has a favorable cervix. She is having some mild contractions, about every 5 to 7 minutes, but they are not painful for her. Baby has been active. NST is reactive. GBS is negative. Blood type O+. Pitocin induction with AROM to augment. Epidural gave good analgesia. Spontaneous vaginal delivery at 1727 for healthy baby boy with weight of 7 lb 1 oz. Plan: 1. Routine care 2. Mom plans to breastfeed, but has inverted nipples. Baby did latch and nurse in the delivery room. 04/06/20: 1. Continue routine care, doing well, only using ibuprofen for cramping. 2. Continue with education and support 3. Complete education for care and care. 4. Mood is stable at this time, bonding well, continue to monitor. Do EPDS tomorrow. 5. Plan to discharge tomorrow.
[2020-04-06] MEDS: Ibuprofen 800 MG Tab PO PRN (12:25)
[2020-04-07] MEDS ORDERED: Bupivacaine 0.25% 10 ML SDV ONE
--- NOTE | 2020-04-07 17:31 | PCM.DCSUM1 ---
Discharge Summary - Hospital Course Free Text/Narrative:: 19 yo at 39+2 weeks gestation admitted for elective induction of labor due to being term. Her was complicated by threatened labor at about 34 weeks and did spend a couple of days in the hospital in [place] and received Betamethasone x 2 doses. She has continued to have intermittent contractions since then, but they settle on their own. She has had some febrile illnesses and has been tested for COVID-19 twice and both times has been negative. No known exposure to a positive case and no symptoms at this time. She has had some upper abdominal pain and GERD and I had started her on pantoprazole. She does have a history of asthma but only uses albuterol occasionally. She has received her Tdap and influenza vaccinations. SHe plans to breastfeed. She is having a boy determined by the [employer] test and is wanting to have him circumcised. 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 Her partner was tested and was negative, so baby is low risk for developing the disease (1/54,000) Her labs show blood type O positive, antibody screen negative. Infectious disease screenings were negative. Repeat RPR at 28 weeks was negative. GBS test at 37 weeks was negative. She was started on pitocin induction per protocol shortly after 8:00 am, AROM was performed at 1230 to augment labor. Moderate amount of clear fluid drained. Her pitocin was at 10 mU/min at that time. Her contractions increased in intensity and regularity with that and she requested an epidural. Epidural was placed and dosed at 1415. Her pitocin was decreased to 6 mU/min due to hyperstimulation. She had good relief with the epidural and progressed well. Fetus tolerated 1st stage of labor. She was completely dilated at 1705 and I was called in. We got her prepped and started pushing at 1718. She pushed very well and baby tolerated second stage of labor. Head delivered from ARLETH presentation and there was a loose nuchal cord that easily slipped over baby 's head. The shoulders delivered without any difficulty. Time of delivery was 1727 and it was baby boy. He was dried and stimulated and the mouth and nose were suctioned with bulb suction. He cried at the perineum. He was placed skin to skin on mother's abdomen and once the cord stopped pulsating, the clamp was placed and cord was cut. Apgars were 8 and 9 at 1 and 5 minutes respectively. Baby weighed 7 lb 1 oz (3210 grams). Placenta delivered spontaneously at 1731. It was intact and there were 3 vessels in the cord. Uterus firmed down nicely. Pitocin infusion was started after delivery of the baby. There was a second degree perineal laceration that was repaired in the usual manner with 3-0 vicryl. There was also a right labial tear that was repaired with 4-0 vicryl in a running subcuticular stitch. Bimanual exam was performed after repair was complete and some blood clots were expressed from the uterus and it was firm. EBL 300 ml. Both Mom and baby were left in the delivery room in stable condition. Mom plans to breastfeed. She has done well with her bleeding slowing, cramping controlled with ibuprofen. She has been working on and there have been some latch difficulties due to severely inverted nipples. She has started using nipple raza when and the breast cups in her bra between feedings. The left nipple has gotten bruised. Her mood has been stable and she is bonding well with her baby. Diagnosis: Stroke: No Modified [place] Scale: No Symptoms at All Modified [place] Scale Score: 0 - Discharge Data Discharge Date: 04/07/20 Discharge Disposition: Home, Self-Care 01 Condition: Good - Referral to Home Health Primary Care Physician: Honey Coreas MD - Discharge Diagnosis/Problem(s) (1) 39 weeks gestation of SNOMED Code(s): 24231417 ICD Code: Z3A.39 - 39 WEEKS GESTATION OF Status: Acute Current Visit: Yes (2) Encounter for elective induction of labor SNOMED Code(s): 922893931 ICD Code: Z34.90 - ENCNTR FOR SUPRVSN OF NORMAL , UNSP, UNSP TRIMESTER Status: Acute Current Visit: Yes (3) Asthma SNOMED Code(s): 680459558 ICD Code: J45.909 - UNSPECIFIED ASTHMA, UNCOMPLICATED Status: Acute Current Visit: Yes (4) Anxiety SNOMED Code(s): 68486614 ICD Code: F41.9 - ANXIETY DISORDER, UNSPECIFIED Status: Acute Current Visit: Yes (5) Normal spontaneous vaginal delivery SNOMED Code(s): 95915582, 104975908 ICD Code: O80 - ENCOUNTER FOR FULL-TERM UNCOMPLICATED DELIVERY Status: Acute Current Visit: Yes (6) Breast feeding status of mother SNOMED Code(s): 167513418 ICD Code: Z39.1 - ENCOUNTER FOR CARE AND EXAMINATION OF LACTATING MOTHER Status: Acute Current Visit: Yes (7) Inverted nipple SNOMED Code(s): 34012363 ICD Code: N64.59 - OTHER SIGNS AND SYMPTOMS IN BREAST Status: Acute Current Visit: Yes - Patient Summary/Data Consults: Consultations 04/07/20 07:54 Consult to Case Management/Water Main Inspector [CONS] Routine - Patient Instructions Diet: Regular Diet as Tolerated, Drink 8-10+ Glasses/Day Activity: As Tolerated Driving: May Drive Today Showering/Bathing: May Shower Wound/Incision Care: Keep Operative Site/Wound Site Clean and Dry Notify Provider of: Fever, Increased Pain, Swelling and Redness, Drainage, Nausea and/or Vomiting - Discharge Plan *PRESCRIPTION DRUG MONITORING PROGRAM REVIEWED*: Not Applicable *COPY OF PRESCRIPTION DRUG MONITORING REPORT IN PATIENT CHUCKIE: Not Applicable Home Medications: Home Meds Albuterol [Ventolin HFA] 1 inh INH ASDIRECTED PRN 10/30/18 [History] Pnv No.103/Folic/Om3s/Fish Oil [ Gummies] 1 each PO DAILY 12/28/19 [ History] Acetaminophen [Tylenol] 650 mg PO Q4H PRN tablet 04/06/20 [Rx] Benzocaine/Menthol [Dermoplast Pain Relief [place]] 1 applic TOP ASDIRECTED PRN canister 04/06/20 [Rx] Docusate Sodium [Colace] 100 mg PO BID PRN cap 04/06/20 [Rx] Ibuprofen [Motrin] 800 mg PO Q6H PRN tablet 04/06/20 [Rx] witch Meenakshi [Tucks] 1 pad TOP ASDIRECTED PRN pad 04/06/20 [Rx] Oxygen Therapy Mode: Room Air Patient Handouts: and Inducing , Rooming-In With Your , Exclusive , Breast Pumping Tips, and Low Milk Supply, and Medicine Use, and Mastitis, Baby Blues, and Self-Care, Breast Engorgement, Tips for a Good Latch, Care After Vaginal Delivery, and Cracked or Sore Nipples - Discharge Summary/Plan Comment DC Time >30 min.: No Discharge Summary/Plan Comment: 19 year old G1 now P1 with after elective induction of labor. She had a second degree perineal laceration and a right labial tear that were both repaired. She has had a normal uncomplicated course. She is and having some difficulties with latch due to inverted nipples. Had consult today prior to discharge. She has a history of depression and anxiety and possibly bipolar disorder. Mood has been stable. She does have anemia, and Hgb after delivery was down to 8.7. Plan: 1. Routine care instructions. 2. Breastfeed on demand 3. Continue ibuprofen or tylenol as needed for cramping and discomfort. 4. Continue 2 Flintstones vitamins and an iron supplement daily for the anemia. 5. Follow up in 6 weeks for visit. - General Info Date of Service: 04/07/20 Admission Dx/Problem (Free Text: Admission Diagnosis/Problem Admission Diagnosis/Problem 04/05/20 08:09 at 39+ weeks gestation. Encounter for induction of labor Subjective Update: Patient is doing well, bleeding is slowing down and pretty light. Voiding well. Eating and ambulating well. Has some cramping that is relieved with ibuprofen. She is bonding well with baby and working on . Has been very patient with baby. Her nipples are inverted and she admits to some soreness at this time. She did start using nipple shield to help with latch and the left nipple is mildly bruised. Mild tenderness at epidural site. Denies headache, dizziness or SOB. Functional Status: Reports: Pain Controlled, Tolerating Diet, Ambulating, Urinating - Review of Systems General: Reports: No Symptoms HEENT: Reports: No Symptoms Pulmonary: Reports: No Symptoms Cardiovascular: Reports: No Symptoms Gastrointestinal: Reports: No Symptoms Genitourinary: Reports: No Symptoms Musculoskeletal: Reports: Back Pain Neurological: Reports: No Symptoms Psychiatric: Reports: No Symptoms - Patient Data Vitals - Most Recent: Last Vital Signs Temp 36.7 C 04/07/20 08:58 Pulse 96 04/07/20 08:58 Resp 20 04/07/20 08:58 BP 115/69 04/07/20 08:58 Pulse Ox 98 04/07/20 08:58 Weight - Most Recent: 59.874 kg I&O - Last 24 hours: Intake & Output 04/07/20 04/07/20 04/07/20 06:59 14:59 22:59 Intake Total 150 Balance 150 Med Orders - Current: Current Medications Acetaminophen (Tylenol) 650 mg PO Q4H PRN PRN Reason: mild pain or fever Al Hydroxide/Mg Hydroxide (Mag-Al Plus) 30 ml PO Q8H PRN PRN Reason: Heartburn Albuterol (Proventil Hfa) 0 gm INH Q4H PRN PRN Reason: Shortness of Breath Benzocaine/Menthol (Dermoplast Pain Relief [place]) 0 gm TOP ASDIRECTED PRN PRN Reason: Perineal Comfort Measure Docusate Sodium (Colace) 100 mg PO BID PRN PRN Reason: Constipation Last Admin: 04/05/20 22:24 Dose: 100 mg Ibuprofen (Motrin) 800 mg PO Q6H PRN PRN Reason: Mild pain or fever Last Admin: 04/06/20 12:25 Dose: 800 mg Prenat Multivit/Warehouse Material Handler/Iron/Folic Ac ( Plus Iron) 1 each PO DAILY SERVANDO Last Admin: 04/06/20 12:25 Dose: 1 each Simethicone (Simethicone) 80 mg PO Q4H PRN PRN Reason: Gas Sodium Chloride (Saline Flush) 10 ml FLUSH ASDIRECTED PRN PRN Reason: Keep Vein Open Witch Meenakshi (Tucks) 1 pad TOP ASDIRECTED PRN PRN Reason: Perineal Comfort Measure Discontinued Medications Bupivacaine HCl (Sensorcaine-Mpf 0.25%) 10 ml .ROUTE .STK-MED ONE Stop: 04/07/20 00:01 Calcium Carbonate/Glycine (Tums) 1,000 mg PO Q2H PRN PRN Reason: Indigestion Diphenhydramine HCl (Benadryl) 25 mg IVPUSH Q6H PRN PRN Reason: pruritis Ephedrine Sulfate (Ephedrine Sulfate) 5 mg IVPUSH ASDIRECTED PRN PRN Reason: Hypotension Fentanyl (Sublimaze) 100 mcg EPIDUR Q3H PRN PRN Reason: Pain Last Admin: 04/05/20 13:55 Dose: 100 mcg Fentanyl/Bupivacaine HCl (Fentanyl/Bupivacaine/Ns 2 Mcg-0.125% 100 Ml) 100 ml EPIDUR ASDIRECTED SERVANDO Fentanyl/Bupivacaine HCl (Fentanyl/Bupivacaine/Ns 2 Mcg-0.125% 100 Ml) 100 ml EPIDUR ASDIRECTED PRN PRN Reason: Pain Last Admin: 04/05/20 13:56 Dose: 100 ml Lactated Ringer's (Ringers, Lactated) 1,000 mls @ 100 mls/hr IV ASDIRECTED SERVANDO Last Admin: 04/05/20 15:15 Dose: 100 mls/hr Oxytocin/Lactated Ringer's (Pitocin In Lr 10 Units/1,000 Ml) 10 unit in 1,000 mls @ 12 mls/hr IV TITRATE SERVANDO; Protocol Last Titration: 04/05/20 15:15 Dose: 8 munits/min, 48 mls/hr Oxytocin/Lactated Ringer's (Pitocin In Lr 10 Units/1,000 Ml) 10 unit in 1,000 mls @ 500 mls/hr IV .CONTINUOUS [facility] Lidocaine HCl (Xylocaine 1%) 20 ml INJECT ONETIME ONE Stop: 04/05/20 08:04 Last Admin: 04/06/20 13:14 Dose: Not Given Lidocaine HCl (Xylocaine 1%) Confirm Administered Dose 50 ml .ROUTE .STK-MED ONE Stop: 04/05/20 17:35 Last Admin: 04/06/20 13:14 Dose: Not Given Nalbuphine HCl (Nubain) 10 mg IVPUSH Q2H PRN PRN Reason: Pain Ondansetron HCl (Zofran) 4 mg IVPUSH Q4H PRN PRN Reason: Nausea/Vomiting Pantoprazole Sodium (Protonix) 40 mg PO DAILY [facility] Last Admin: 04/05/20 09:03 Dose: Not Given - Exam General: Reports: Alert, Oriented, Cooperative, No Acute Distress HEENT: Reports: Mucous Membr. Moist/[place] Neck: Reports: Supple Lungs: Reports: Normal Respiratory Effort Cardiovascular: Reports: Regular Rate, Regular Rhythm GI/Abdominal Exam: Normal Bowel Sounds, Soft (Female) Exam: Enlarged Uterus (Fundus 2 fingers below umbilicus and firm. Perineal laceration is intact. ), Vaginal Bleeding Back Exam: Reports: Other (slight bruising at site of epidural and mild tenderness to palpation) Extremities: Normal Inspection, Normal Range of Motion, Non-Tender, No Pedal Edema, Normal Capillary Refill Skin: Reports: Warm, Dry, Intact Wound/Incisions: Reports: Healing Well Neurological: Reports: No New Focal Deficit Psy/Mental Status: Reports: Alert, Normal Affect, Normal Mood
== END 2020-04-07 14:20 | disposition home or self-care (01) | DRG 807 ==
LOC: JD.OB 06:35 → OBSVTOIN 17:27 → JD.OB 17:28
PROVIDERS: ADMIT Family Medicine; ATTEND Family Medicine
PROC: 10E0XZZ Delivery of Products of Conception, External Approach (ICD-10-PCS; principal; 2020-04-05)
PROC: 10907ZC Drainage of Amniotic Fluid, Therapeutic from Products of Conception, Via Natural or Artificial Opening (ICD-10-PCS; 2020-04-05)
PROC: 3E033VJ Introduction of Other Hormone into Peripheral Vein, Percutaneous Approach (ICD-10-PCS; 2020-04-05)
PROC: 3E0R3BZ Introduction of Anesthetic Agent into Spinal Canal, Percutaneous Approach (ICD-10-PCS; 2020-04-05)
DX: O60.14X0 Preterm labor third trimester with preterm delivery third trimester, not applicable or unspecified (principal); Z37.0 Single live birth; Z3A.39 39 weeks gestation of pregnancy; O99.62 Diseases of the digestive system complicating childbirth; K21.9 Gastro-esophageal reflux disease without esophagitis; Z20.828 Contact with and (suspected) exposure to other viral communicable diseases; O69.81X0 Labor and delivery complicated by cord around neck, without compression, not applicable or unspecified; O99.52 Diseases of the respiratory system complicating childbirth; J45.909 Unspecified asthma, uncomplicated; O70.1 Second degree perineal laceration during delivery
CPT/HCPCS: 01967; 36415; 51702; 59025; 59409; 85025; 85027; 86592; A9270-GY; J2590; J3010; J3490; J7120

== ENCOUNTER 2020-06-28 23:16 | Emergency (ER) | payer MEDICAID ==
[2020-06-29] MEDS ORDERED: Albuterol/Ipratropium 3.0-0.5 MG/3 ML Neb Soln NEB ONE (00:43)
--- NOTE | 2020-06-29 00:47 | EDM.PDOC ---
ED HPI GENERAL MEDICAL PROBLEM - General Chief Complaint: Asthma Stated Complaint: SOB/HAS ASTHMA Time Seen by Provider: 06/29/20 00:31 Source of Information: Reports: Patient History Limitations: Reports: No Limitations - History of Present Illness INITIAL COMMENTS - FREE TEXT/NARRATIVE: Ms. Triplett is a very pleasant 19-year-old woman with a past medical history significant for suspected asthma, who now presents the ED stating that she developed dyspnea, chest tightness, wheezing, and a nonproductive cough around noon yesterday, 06/28/2020, after running. Ordinarily, she would use her albuterol MDI, but she states that she has been out for about the past 2 weeks. No recent fever. Here in the ED, the patient is found to be hemodynamically stable, afebrile, sa turating 100% on room air. Other than her current respiratory symptoms, the patient denies having a recent fever, chills, sore throat, ear pain, nasal or sinus congestion, chest pain, palpitations, nausea, vomiting, constipation, diarrhea, abdominal pain, urinary symptoms, recent weight gain or weight loss, recent bloody bowel movements or black bowel movements, recent joint aches, headaches, or rashes. The patient's PCP is Dr. Honey Coreas. Her Guard Chief is Dr. Ivonne Herny. - Related Data Allergies Allergy/AdvReac Type Severity Reaction Status Date / Time Penicillins Allergy Intermediate Hives Verified 06/28/20 23:35 Home Meds: Home Meds Albuterol [Proventil HFA] 1 inhalation INH ASDIRECTED PRN #1 inhaler 06/29/20 [Rx] FLUoxetine HCl [Prozac] 20 mg PO DAILY 06/29/20 [History] OLANZapine [Olanzapine] 1 tab PO DAILY 06/29/20 [History] hydrOXYzine HCL [Atarax] 10 mg PO Q8H 06/29/20 [History] Past Medical History Respiratory History: Reports: Asthma (suspected, not tested) ATTENDANCE CLERK History: Reports: Spontaneous (x 1) : 2 Para: 1 Psychiatric History: Reports: Anxiety, Bipolar, Depression - Past Surgical History HEENT Surgical History: Reports: Oral Surgery (wisdom tooth extraction) Social & Family History - Family History Family Medical History: Noncontributory - Tobacco Use Smoking Status *Q: Never Smoker Second Hand Smoke Exposure: No - Caffeine Use Caffeine Use: Reports: Coffee Other Caffeine Use: de caf - Alcohol Use Alcohol Use History: No - Recreational Drug Use Recreational Drug Use: Yes Drug Use in Last 12 Months: No Recreational Drug Type: Reports: Marijuana/Hashish (last smoked 2016) - Living Situation & Occupation Living situation: Reports: Single, with Significant Other (Boyfriend), with Family (Son) 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 ED EXAM, GENERAL - Physical Exam Exam: See Below Exam Limited By: No Limitations General Appearance: Alert, WD/WN, No Apparent Distress Eye Exam: Bilateral Eye: EOMI, Normal Inspection Ears: Normal External Exam, Hearing Grossly Normal Nose: Normal Inspection Throat/Mouth: Normal Inspection, Normal Lips, Normal Voice, No Airway Compromise Head: Atraumatic, Normocephalic Neck: Normal Inspection, Full Range of Motion Respiratory/Chest: No Respiratory Distress, No Accessory Muscle Use, Wheezing (expiratory only). No: Decreased Breath Sounds, Crackles, Rhonchi, Stridor, Prolonged Expiration Cardiovascular: Normal Peripheral Pulses, Regular Rate, Rhythm, No Edema, No Gallop, No JVD, No Murmur, No Rub Peripheral Pulses: 3+: Radial (L), Radial (R) GI/Abdominal: Normal Bowel Sounds, Soft, Non-Tender, No Organomegaly, No Distention, No Abnormal Bruit, No Mass (Female) Exam: Deferred Rectal (Female) Exam: Deferred Back Exam: Normal Inspection, Full Range of Motion, NT Extremities: Normal Inspection, Normal Range of Motion, No Pedal Edema, Normal Capillary Refill Neurological: Alert, Oriented, Normal Cognition, No Motor/Sensory Deficits Psychiatric: Normal Affect Skin Exam: Warm, Dry, Intact, Normal Color, No Rash Course - Vital Signs Last Recorded V/S: Last Vital Signs Temp 36.5 C 06/28/20 23:35 Pulse 90 06/28/20 23:35 Resp 20 06/28/20 23:35 BP 120/81 06/28/20 23:35 Pulse Ox 99 06/29/20 00:56 - Orders/Labs/Meds Meds: Medications Discontinued Medications Generic Name Dose Route Start Last Admin Trade Name Freq PRN Reason Stop Dose Admin Albuterol/Ipratropium 3 ml 06/29/20 00:43 06/29/20 00:54 Duoneb 3.0-0.5 Mg/3 Ml NEB 06/29/20 00:44 3 ml ONETIME ONE Administration - Re-Assessments/Exams Free Text/Narrative Re-Assessment/Exam: 06/29/20 00:45 As above, the patient developed dyspnea with chest tightness, wheezing, and a nonproductive cough after exercising around noon yesterday. She is afebrile, saturating 100% on room air, but on auscultation of her lungs, she has expiratory wheezing with no prolonged expiratory phase. I have ordered a DuoNeb, but have also asked the respiratory therapist to provide the patient with a peak flow meter and a space chamber. 06/29/20 03:03 The patient was reexamined. Following a DuoNeb, she states that she feels much better. I do not hear any wheezing on auscultation. She was provided both a peak flow meter and a space chamber by the respiratory therapist. We discussed their proper use. I am also recommending that she follow-up with her PCP to arrange for PFTs, to confirm whether or not she actually has asthma. I will submit a prescription for an albuterol MDI. Departure - Departure Time of Disposition: 03:03 Disposition: Home, Self-Care 01 Condition: Good Clinical Impression: Asthma exacerbation - Discharge Information *PRESCRIPTION DRUG MONITORING PROGRAM REVIEWED*: Not Applicable *COPY OF PRESCRIPTION DRUG MONITORING REPORT IN PATIENT CHUCKIE: Not Applicable Prescriptions: Albuterol [Proventil HFA] 1 inhalation INH ASDIRECTED PRN #1 inhaler PRN Reason: Shortness Of Breath Instructions: Asthma, Adult Referrals: Honey Coreas MD [Primary Care Provider] - Forms: ED Department Discharge Additional Instructions: You were seen in the emergency room for shortness of breath with wheezing, chest tightness, and a dry cough. You were treated with a DuoNeb, and your symptoms significantly improved. You have been provided with a peak flow meter and a space chamber. We recommend that you learn how to use your peak flow meter, and know what your usual values are. We recommend that you check your peak flow 2-3 times a week, even if you are feeling well. If your peak flow drops into the yellow zone, even if you are feeling well, please contact your PCP, as this indicates that you may experience an asthma exacerbation within the next 2 weeks. If you are feeling shortness of breath with wheezing, with or without a cough, you should check your peak flow. If it is in the yellow or red zone, use your albuterol as much as necessary, however, if you require an inhalation more often than every 4 hours, you need to be seen by a doctor. Make sure that you take your inhaler for at least 1 minute prior to actuating it, and always use a spacer chamber. If you are feeling shortness of breath, but your peak flow is in the green zone, then do not take albuterol. This indicates that your shortness of breath is not due to an asthma exacerbation. We recommend that you follow-up with your PCP, Dr. Honey Coreas, to arrange for pulmonary function test, to determine once and for all if you have asthma. If any other problems, please do not hesitate to return to the ER. Sepsis Event Note (ED) - Evaluation Sepsis Screening Result: No Definite Risk - Focused Exam Vital Signs: Vital Signs Temp Pulse Resp BP Pulse Ox Pulse Ox 06/29/20 00:56 99 06/28/20 23:35 36.5 C 90 20 120/81 100
== END 2020-06-29 03:14 | disposition home or self-care (01) ==
LOC: JD.ED 23:16
DX: J45.901 Unspecified asthma with (acute) exacerbation (principal); Z88.0 Allergy status to penicillin; Z79.899 Other long term (current) drug therapy
CPT/HCPCS: 94640; 99283; 99284-25; J7620-GY

== ENCOUNTER 2020-07-03 21:21 | Emergency (ER) | payer MEDICAID ==
--- NOTE | 2020-07-03 21:56 | EDM.PDOCBH ---
ED HPI GENERAL MEDICAL PROBLEM - General Chief Complaint: Behavioral/Psych Stated Complaint: THOUGHTS OF HURTING SELF Time Seen by Provider: 07/03/20 21:37 Source of Information: Reports: Patient History Limitations: Reports: No Limitations - History of Present Illness INITIAL COMMENTS - FREE TEXT/NARRATIVE: Ms. Triplett is a very pleasant 19-year-old woman with a past medical history significant for anxiety, depression, and bipolar affective disorder, who now presents the ED for depression and possible suicidal ideation. The patient tells me that she has been feeling depressed, ever since she gave to her son about 3 months ago. She states that she had previously been prescribed 6 psychiatric medications, but self-discontinued them about 2 years ago, due to side effects. She was started on 3 psychiatric medications on 05/07/2020, after undergoing a telemedicine evaluation by her psychiatrist in [place]. She has not yet had a follow-up appointment with him, but is due to have one this coming 07/09/2020. She now presents the ED stating that her depression worsened after she was involved in a minor verbal altercation with her boyfriend ryder. She left the house and drove around for several hours, with her family looking for her. She states that at one point she stepped on the gas hard, increasing the speed of her vehicle to about [address], briefly. Other than that action, however, she denies attempting to harm herself, and she states that she has no plan to commit suicide. She states that when she returned home, her brother and boyfriend's mother made her come to the ED for evaluation. She denies prior suicide attempts, but states that she did plan to kill herself when 15 years old, resulting in 6 weeks of outpatient treatment. She has never been psychiatrically hospitalized. The patient states that she has been compliant with her psychiatric medications, however, I am notified by Sylvia AGUILAR that the patient's boyfriend's mother, Judith, with whom the patient has been staying for the past 2 weeks, states that the patient may not have been. The patient may take her morning medicines, but then not take her evening medicines, or vomit them when not being observed. Additionally, the patient has apparently been posting concerning comments regarding self-harm on social media, posting last night "I am not attention seeking, this is my cry for help, I cannot live like this any longer...bye". The [facility] department apparently spoke with the patient last night after they were called by the family regarding the social media post. They apparently spoke to the patient and left. Here in the ED, the patient is found to be hemodynamically stable, afebrile, saturating 100% on room air. The patient was seen by me in this ED this past 06/28/2020, for an asthma exacerbation. She was treated, improved significantly, and discharged home with a prescription for an albuterol MDI. Otherwise, she denies having a recent fever, chills, sore throat, ear pain, nasal or sinus congestion, cough, dyspnea, chest pain, palpitations, nausea, vomiting, constipation, diarrhea, abdominal pain, urinary symptoms, recent weight gain or weight loss, recent bloody bowel movements or black bowel movements, recent joint aches, headaches, or rashes. The patient's PCP is Dr. Honey Coreas. Her Certified Maintenance Welder is Dr. Ivonne Henry. Her Psychiatrist is Dr. Kristian Hannon, in [place]. 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 History: Reports: Spontaneous (x 1) : 2 Para: 1 Psychiatric History: Reports: Anxiety, Bipolar, Depression - Past Surgical History HEENT Surgical History: Reports: Oral Surgery (wisdom teeth extraction) Social & Family History - Family History Family Medical History: Noncontributory Cardiac: Reports: Aneurysm Psychiatric: Reports: Other (See Below) Other Psychiatric Family History: substance abuse - Tobacco Use Smoking Status *Q: Never Smoker Second Hand Smoke Exposure: No - Caffeine Use Caffeine Use: Reports: Soda Other Caffeine Use: de caf - Alcohol Use Alcohol Use History: No - Recreational Drug Use Recreational Drug Use: Yes Drug Use in Last 12 Months: No Recreational Drug Type: Reports: Marijuana/Hashish (last smoked 2016) - Living Situation & Occupation Living situation: Reports: Single, with Significant Other (Boyfriend), with Family (Son) 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 ED EXAM, BEHAVIORAL HEALTH - Physical Exam Exam: See Below Exam Limited By: No Limitations General Appearance: Alert, WD/WN, No Apparent Distress Eye Exam: Bilateral Eye: EOMI, Normal Inspection Ears: Normal External Exam, Hearing Grossly Normal Nose: Normal Inspection Throat/Mouth: Normal Inspection, Normal Lips, Normal Voice, No Airway Compromise Head: Atraumatic, Normocephalic Neck: Normal Inspection, Full Range of Motion Respiratory/Chest: No Respiratory Distress, Lungs Clear, Normal Breath Sounds, No Accessory Muscle Use Cardiovascular: Normal Peripheral Pulses, Regular Rate, Rhythm, No Edema, No Gallop, No JVD, No Murmur, No Rub GI/Abdominal: Normal Bowel Sounds, Soft, Non-Tender, No Organomegaly, No Distention, No Abnormal Bruit, No Mass (Female) Exam: Deferred Rectal (Female) Exam: Deferred Back Exam: Normal Inspection, Full Range of Motion, NT Extremities: Normal Inspection, Normal Range of Motion, No Pedal Edema, Normal Capillary Refill Neurological: Alert, Normal Cognition, No Motor/Sensory Deficits, Oriented x 3 Psychiatric: Depressed Mood (mild) Skin Exam: Warm, Dry, Intact, Normal color, No rash EKG INTERPRETATION EKG Date: 07/03/20 Time: 22:00 Rhythm: NSR Rate (Beats/Min): 88 [place]: Normal P-Wave: Present QRS: Normal ST-T: Normal QT: Normal Comparison: NA - No Prior EKG COURSE, BEHAVIORAL HEALTH COMP - Course Vital Signs: Last Vital Signs Temp 36.4 C 07/03/20 21:26 Pulse 84 07/03/20 21:26 Resp 16 07/03/20 21:26 BP 116/73 07/03/20 21:26 Pulse Ox 100 07/03/20 21:26 Orders, Labs, Meds: Active Orders 24 hr Category Date Time Status EKG Documentation Completion [RC] STAT Care 07/03/20 21:52 Active Laboratory Tests 07/03/20 07/03/20 07/03/20 Range/Units 21:50 21:52 22:07 WBC 8.97 (3.98-10.04) K/mm3 RBC 4.27 (3.98-5.22) M/mm3 Hgb 11.9 D (11.2-15.7) gm/dl Hct 36.3 (34.1-44.9) % MCV 85.0 D (79.4-94.8) fl MCH 27.9 (25.6-32.2) pg MCHC 32.8 (32.2-35.5) g/dl RDW Std Deviation 44.1 (36.4-46.3) fL Plt Count 343 D (182-369) K/mm3 MPV 10.3 (9.4-12.3) fl Neutrophils % (Manual) 54 (40-60) % Band Neutrophils % 0 (0-10) % Lymphocytes % (Manual) 33 (20-40) % Atypical Lymphs % 0 % Monocytes % (Manual) 6 (2-10) % Eosinophils % (Manual) 6 H (0.7-5.8) % Basophils % (Manual) 1 (0.1-1.2) Toxic Granulation Platelet Estimate Adequate Plt Morphology Comment Normal Hypochromasia 1+ slight RBC Morph Comment Abnormal Sodium (136-145) mEq/L Potassium (3.5-5.1) mEq/L Chloride (98-107) mEq/L Carbon Dioxide (21-32) mEq/L Anion Gap (5-15) BUN (7-18) mg/dL Creatinine (0.55-1.02) mg/dL Est Cr Clr Drug Dosing mL/min Estimated GFR (MDRD) (>60) mL/min BUN/Creatinine Ratio (14-18) Glucose (74-106) mg/dL Calcium (8.5-10.1) mg/dL Magnesium (1.8-2.4) mg/dl Total Bilirubin (0.2-1.0) mg/dL AST (15-37) U/L ALT (14-59) U/L Alkaline Phosphatase (46-116) U/L Total Protein (6.4-8.2) g/dl Albumin (3.4-5.0) g/dl Globulin gm/dL Albumin/Globulin Ratio (1-2) TSH 3rd Generation (0.516-4.13) uIU/mL Urine HCG, Qual Negative (NEGATIVE) Salicylates (2.8-20) mg/dL Urine Opiates Screen Negative (NGYAYP=678) Ur Buprenorphine Scrn Negative (CUTOFF=10) Ur Oxycodone Screen Negative (XAJ3NB=137) Urine Methadone Screen Negative (EFFNVG=926) Ur Propoxyphene Screen Negative (CIWDYO=935) Acetaminophen (10-30) ug/mL Ur Barbiturates Screen Negative (VMXRKT=820) Ur Tricyclics Screen Negative (ZXKAKM=791) Ur Phencyclidine Scrn Negative (CUTOFF=25) Ur Amphetamine Screen Negative (MUHQKI=336) U Methamphetamines Scrn Negative (QSQWZW=432) U Benzodiazepines Scrn Negative (BTHWTT=596) U Cocaine Metab Screen Negative (YKRPBE=673) U Marijuana (THC) Screen Negative (CUTOFF=50) Ethyl Alcohol (0.00) gm% COVID-19 (ZULEYMA) (NEGATIVE) 07/03/20 07/03/20 07/03/20 Range/Units 22:07 22:07 22:10 WBC (3.98-10.04) K/mm3 RBC (3.98-5.22) M/mm3 Hgb (11.2-15.7) gm/dl Hct (34.1-44.9) % MCV (79.4-94.8) fl MCH (25.6-32.2) pg MCHC (32.2-35.5) g/dl RDW Std Deviation (36.4-46.3) fL Plt Count (182-369) K/mm3 MPV (9.4-12.3) fl Neutrophils % (Manual) (40-60) % Band Neutrophils % (0-10) % Lymphocytes % (Manual) (20-40) % Atypical Lymphs % % Monocytes % (Manual) (2-10) % Eosinophils % (Manual) (0.7-5.8) % Basophils % (Manual) (0.1-1.2) Toxic Granulation Platelet Estimate Plt Morphology Comment Hypochromasia RBC Morph Comment Sodium 137 (136-145) mEq/L Potassium 3.6 (3.5-5.1) mEq/L Chloride 102 (98-107) mEq/L Carbon Dioxide 26 (21-32) mEq/L Anion Gap 12.6 (5-15) BUN 11 (7-18) mg/dL Creatinine 0.8 (0.55-1.02) mg/dL Est Cr Clr Drug Dosing 109.34 mL/min Estimated GFR (MDRD) > 60 (>60) mL/min BUN/Creatinine Ratio 13.8 L (14-18) Glucose 102 (74-106) mg/dL Calcium 9.0 (8.5-10.1) mg/dL Magnesium 1.9 (1.8-2.4) mg/dl Total Bilirubin 0.2 (0.2-1.0) mg/dL AST 20 (15-37) U/L ALT 31 (14-59) U/L Alkaline Phosphatase 88 (46-116) U/L Total Protein 7.3 (6.4-8.2) g/dl Albumin 3.7 (3.4-5.0) g/dl Globulin 3.6 gm/dL Albumin/Globulin Ratio 1.0 (1-2) TSH 3rd Generation 2.466 (0.516-4.13) uIU/mL Urine HCG, Qual (NEGATIVE) Salicylates 1.4 L (2.8-20) mg/dL Urine Opiates Screen (TEXLDA=749) Ur Buprenorphine Scrn (CUTOFF=10) Ur Oxycodone Screen (QFE8QM=898) Urine Methadone Screen (NONTGK=662) Ur Propoxyphene Screen (MRFTWU=159) Acetaminophen 0 L (10-30) ug/mL Ur Barbiturates Screen (CQZXTZ=986) Ur Tricyclics Screen (INVBOX=915) Ur Phencyclidine Scrn (CUTOFF=25) Ur Amphetamine Screen (EABSIY=492) U Methamphetamines Scrn (IXRMKM=631) U Benzodiazepines Scrn (NFPXZC=475) U Cocaine Metab Screen (NXWSWF=418) U Marijuana (THC) Screen (CUTOFF=50) Ethyl Alcohol 0.00 (0.00) gm% COVID-19 (ZULEYMA) Negative (NEGATIVE) Medical Clearance: 07/03/20 21:53 As above, the patient has been feeling depressed for approximately 3 months, ever since delivering. Her symptoms became worse last night and today, although while she feels like harming herself, she has not actually attempted to harm herself, and states that she has no plan to do so, however, she states that she did drive about 90 miles an hour, briefly, on a dirt road today, after leaving home for several hours. She is hemodynamically stable, afebrile, saturating 100%, and her physical exam is completely benign. I have ordered a standard psychiatric medical clearance panel, including blood work, a urine drug screen, a urine test, an ECG, and a test for the SARS-CoV-2 virus. In the meantime, we will see if we can get the patient something to eat. 07/03/20 23:52 The patient's CBC is unremarkable. Her CMP is unremarkable. Her magnesium level is within normal limits at 1.9. Her TSH is within normal limits at 2.466. Her acetaminophen level is 0. Her salicylate level is within normal limits at 1.4. Her EtOH level is 0.00. Her urine drug screen is completely negative. Her urine test is negative. Her test for the SARS-CoV-2 virus is negative. 07/04/20 00:56 Case discussed with Chasity at [facility] at 00:46. Case then discussed with Dr. Nguyen, Psychiatrist at [facility], at 00:49. She accepted the patient for admission to their facility, however, recommended that we place the patient under 24-hour hold. Since that may mean that the patient will not be transported until the morning, and they cannot hold the bed until that time, we are to call them in the morning to confirm that beds are still available, however, she stated that they have a number of beds available currently, and they doubt that they will be filled by the morning. In the meantime, we are to fax a copy of the 24-hold paperwork. 07/04/20 06:12 Notified that beds are still available at [facility], and that the [facility] department will be here to pick the patient up at 06:30. Departure - Departure Time of Disposition: 06:13 Disposition: DC/Tfer to Psych Hosp/Unit 65 Condition: Good Clinical Impression: Suicidal ideation, Depression - Discharge Information *PRESCRIPTION DRUG MONITORING PROGRAM REVIEWED*: Not Applicable *COPY OF PRESCRIPTION DRUG MONITORING REPORT IN PATIENT CHUCKIE: Not Applicable Referrals: Honey Coreas MD [Primary Care Provider] - Ivonne Henry MD [Physician] - Forms: ED Department Discharge Sepsis Event Note (ED) - Evaluation Sepsis Screening Result: No Definite Risk - Focused Exam Vital Signs: Vital Signs Temp Pulse Resp BP Pulse Ox 07/03/20 21:26 36.4 C 84 16 116/73 100 - My Orders Last 24 Hours: My Active Orders 07/03/20 21:52 EKG Documentation Completion [RC] STAT - Assessment/Plan Last 24 Hours: My Active Orders 07/03/20 21:52 EKG Documentation Completion [RC] STAT
[2020-07-03 22:44] LABS: ACETAMINOPHEN 0 ug/mL (10-30)
== END 2020-07-04 06:50 ==
LOC: JD.ED 21:21
DX: F32.9 Major depressive disorder, single episode, unspecified (principal); J45.909 Unspecified asthma, uncomplicated; F41.9 Anxiety disorder, unspecified; Z20.828 Contact with and (suspected) exposure to other viral communicable diseases; Z88.0 Allergy status to penicillin; Z79.899 Other long term (current) drug therapy
CPT/HCPCS: 36415; 80053; 80306; 80307; 81025; 83735; 84443; 85007; 85027; 93005; 93010; 99285; 99285-25; U0002

== ENCOUNTER 2020-10-21 11:46 | Emergency (ER) | payer MEDICAID ==
--- NOTE | 2020-10-21 12:27 | EDM.PDOC ---
ED HPI GENERAL MEDICAL PROBLEM - General Chief Complaint: Respiratory Problem Stated Complaint: COUGH/HEADACHE/CONGESTED Time Seen by Provider: 10/21/20 12:00 Source of Information: Reports: Patient, RN Notes Reviewed History Limitations: Reports: No Limitations - History of Present Illness INITIAL COMMENTS - FREE TEXT/NARRATIVE: Patient is a 19-year-old female presenting to the emergency department with request of having Covid testing completed. She had a known exposure to an individual who was found to be Covid positive on 17 October. Yesterday she developed headache, cough, nasal drainage, and sneezing. She denies any chest pain or shortness of breath. She has had no fever or chills. Vital signs in triage were found to be stable. Temperature 98.2, pulse 95, blood pressure 132/87, respiratory rate 18, oxygen 99% on room air. - Related Data Allergies Allergy/AdvReac Type Severity Reaction Status Date / Time Penicillins Allergy Intermediate Hives Verified 07/03/20 21:32 Home Meds: Home Meds FLUoxetine HCl [Prozac] 20 mg PO DAILY 06/29/20 [History] OLANZapine [Olanzapine] 5 mg PO DAILY 06/29/20 [History] hydrOXYzine HCL [Atarax] 10 mg PO Q8H 06/29/20 [History] Past Medical History - Past Health History Medical/Surgical History: Denies Medical/Surgical History Cardiovascular History: Reports: Other (See Below) Other Cardiovascular History: palpitations during Respiratory History: Reports: Asthma Gastrointestinal History: Reports: GERD Genitourinary History: Reports: None DIRECTOR LIFE History: Reports: Spontaneous Other DIRECTOR LIFE History: Patient has an implanted form of progesterone to prevent . It is good for 3 years she reports will not have to be changed until 2019 Musculoskeletal History: Reports: None Neurological History: Reports: None Psychiatric History: Reports: Anxiety, Bipolar, Depression Endocrine/Metabolic History: Reports: None Hematologic History: Reports: None Immunologic History: Reports: None Oncologic (Cancer) History: Reports: None Dermatologic History: Reports: None - Infectious Disease History Infectious Disease History: Reports: None - Past Surgical History HEENT Surgical History: Reports: Oral Surgery Female Surgical History: Reports: None Social & Family History - Family History Family Medical History: No Pertinent Family History Cardiac: Reports: Aneurysm Psychiatric: Reports: Other (See Below) Other Psychiatric Family History: substance abuse - Caffeine Use Caffeine Use: Reports: Energy Drinks, Soda Other Caffeine Use: de caf - Recreational Drug Use Recreational Drug Use: Yes Drug Use in Last 12 Months: Yes Recreational Drug Type: Reports: Marijuana/Hashish Recreational Drug Use Frequency: Not Used In Over 1 Month - Living Situation & Occupation Living situation: Reports: Single, with Significant Other (Boyfriend), with Family (Son) 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 Denies: Fever, Chills, Fatigue, Decreased Appetite HEENT: Reports: Rhinitis Respiratory: Reports: Cough. Denies: Shortness of Breath, Pleuritic Chest Pain Cardiovascular: Reports: No Symptoms Endocrine: Reports: No Symptoms GI/Abdominal: Reports: No Symptoms : Reports: No Symptoms Musculoskeletal: Reports: No Symptoms Skin: Reports: No Symptoms Neurological: Reports: Headache Psychiatric: Reports: No Symptoms Hematologic/Lymphatic: Reports: No Symptoms Immunologic: Reports: No Symptoms ED EXAM, GENERAL - Physical Exam Exam: See Below General Appearance: Alert, WD/WN, No Apparent Distress Respiratory/Chest: No Respiratory Distress, Lungs Clear, Normal Breath Sounds, No Accessory Muscle Use, Chest Non-Tender Cardiovascular: Normal Peripheral Pulses, Regular Rate, Rhythm, No Edema, No Gallop, No JVD, No Murmur, No Rub GI/Abdominal: Normal Bowel Sounds, Soft, Non-Tender, No Organomegaly, No Distention, No Abnormal Bruit, No Mass Neurological: Alert, Oriented, CN II-XII Intact, Normal Cognition, Normal Gait, Normal Reflexes, No Motor/Sensory Deficits Psychiatric: Normal Affect, Normal Mood Skin Exam: Warm, Dry, Intact, Normal Color, No Rash Course - Vital Signs Last Recorded V/S: Last Vital Signs Temp 98.2 F 10/21/20 12:03 Pulse 95 10/21/20 12:03 Resp 18 10/21/20 12:03 BP 132/87 10/21/20 12:03 Pulse Ox 99 10/21/20 12:03 - Orders/Labs/Meds Orders: Active Orders 24 hr Category Date Time Status CORONAVIRUS COVID-19 PCR PHL Routine Lab 10/21/20 12:08 Ordered - Re-Assessments/Exams Free Text/Narrative Re-Assessment/Exam: Patient is a 19-year-old female presenting to the ER with request of having Covid testing done. She had known exposure to Covid on 17 October. Yesterday she developed congestion, sneezing, cough, and headache. Vital signs are stable. She is oxygenating 99% on room air. Exam is grossly unremarkable. We will complete a public health lab Covid test. Discussed return precautions. Discharge instructions as documented. Departure - Departure Time of Disposition: 12:34 Disposition: Home, Self-Care 01 Condition: Good Clinical Impression: Viral illness - Discharge Information *PRESCRIPTION DRUG MONITORING PROGRAM REVIEWED*: No *COPY OF PRESCRIPTION DRUG MONITORING REPORT IN PATIENT CHUCKIE: No Referrals: Honey Coreas MD [Primary Care Provider] - Forms: ED Department Discharge, ED Return to Work/School Form Additional Instructions: You were seen in the emergency department today with request to have Covid testing done after a known exposure to COVID-19. A public health lab Covid test has been completed. You will be notified when these results are available. You should isolate until results are available. Return to ER for any new or worsening symptoms of concern. Sepsis Event Note (ED) - Evaluation Sepsis Screening Result: No Definite Risk - Focused Exam Vital Signs: Vital Signs Temp Pulse Resp BP Pulse Ox 10/21/20 12:03 98.2 F 95 18 132/87 99 - My Orders Last 24 Hours: My Active Orders 10/21/20 12:08 CORONAVIRUS COVID-19 PCR PHL Routine - Assessment/Plan Last 24 Hours: My Active Orders 10/21/20 12:08 CORONAVIRUS COVID-19 PCR PHL Routine
== END 2020-10-21 12:50 | disposition home or self-care (01) ==
LOC: JD.ED 11:46
DX: B34.9 Viral infection, unspecified (principal); J45.909 Unspecified asthma, uncomplicated; F41.9 Anxiety disorder, unspecified; F31.9 Bipolar disorder, unspecified; Z88.0 Allergy status to penicillin; Z79.899 Other long term (current) drug therapy; Z20.828 Contact with and (suspected) exposure to other viral communicable diseases
CPT/HCPCS: 99283; U0002

== ENCOUNTER 2020-11-29 12:39 | Emergency (ER) | payer MEDICAID ==
--- NOTE | 2020-11-29 13:23 | EDM.PDOC ---
ED HPI GENERAL MEDICAL PROBLEM - General Chief Complaint: Genitourinary Problem Stated Complaint: LOWER ABD AND BACK PAIN Time Seen by Provider: 11/29/20 12:44 Source of Information: Reports: Patient History Limitations: Reports: No Limitations - History of Present Illness INITIAL COMMENTS - FREE TEXT/NARRATIVE: The patient presents with dysuria and urinary frequency. This has been going on for about a week. Now she has some lower abdominal and back pain. She has been trying to drink water and other ways of treating this but nothing is helping. She denies fever, chills, nausea or vomiting. Onset: Gradual Duration: Week(s): Location: Reports: Abdomen, Back Quality: Reports: Sharp Severity: Mild Improves with: Reports: None Worsens with: Reports: None Associated Symptoms: Reports: Nausea/Vomiting. Denies: Chest Pain, Cough, Fever/Chills, Headaches, Shortness of Breath Lower Abdominal Pain Score (Numeric/FACES): 7 - Related Data Allergies Allergy/AdvReac Type Severity Reaction Status Date / Time Penicillins Allergy Intermediate Hives Verified 11/29/20 12:45 Home Meds: Home Meds FLUoxetine HCl [Prozac] 20 mg PO DAILY 06/29/20 [History] OLANZapine [Olanzapine] 5 mg PO DAILY 06/29/20 [History] hydrOXYzine HCL [Atarax] 10 mg PO Q8H 06/29/20 [History] Albuterol Sulfate [Albuterol Sulfate Hfa] 2 inh IH Q4H PRN 11/29/20 [History] cephALEXin [Keflex] 500 mg PO BID #10 cap 11/29/20 [Rx] Past Medical History - Past Health History Medical/Surgical History: Denies Medical/Surgical History Cardiovascular History: Reports: Other (See Below) Other Cardiovascular History: palpitations during Respiratory History: Reports: Asthma Gastrointestinal History: Reports: GERD Genitourinary History: Reports: None LEAD SYSTEMS ENGINEER History: Reports: Spontaneous Other LEAD SYSTEMS ENGINEER History: Patient has an implanted form of progesterone to prevent . It is good for 3 years she reports will not have to be changed until 2019 Musculoskeletal History: Reports: None Neurological History: Reports: None Psychiatric History: Reports: Anxiety, Bipolar, Depression Endocrine/Metabolic History: Reports: None Hematologic History: Reports: None Immunologic History: Reports: None Oncologic (Cancer) History: Reports: None Dermatologic History: Reports: None - Infectious Disease History Infectious Disease History: Reports: None - Past Surgical History Head Surgeries/Procedures: Reports: None HEENT Surgical History: Reports: Oral Surgery Female Surgical History: Reports: None Social & Family History - Family History Family Medical History: No Pertinent Family History Cardiac: Reports: Aneurysm Psychiatric: Reports: Other (See Below) Other Psychiatric Family History: substance abuse - Tobacco Use Tobacco Use Status *Q: Current Every Day Tobacco User Years of Tobacco use: 1 Packs/Tins Daily: 0.1 - Caffeine Use Caffeine Use: Reports: None Other Caffeine Use: de caf - Recreational Drug Use Recreational Drug Use: No - Living Situation & Occupation Living situation: Reports: Single, with Significant Other (Boyfriend), with Family (Son) 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 Denies: Nausea, Vomiting : Reports: Dysuria, Frequency Musculoskeletal: Reports: Back Pain (low back pain) ED EXAM, RENAL/ - Physical Exam Exam: See Below Exam Limited By: No Limitations General Appearance: Alert, No Apparent Distress Ears: Normal External Exam Nose: Normal Inspection Head: Atraumatic, Normocephalic Neck: Normal Inspection Respiratory/Chest: No Respiratory Distress, Lungs Clear, Normal Breath Sounds Cardiovascular: Regular Rate, Rhythm, No Edema, No Murmur GI/Abdominal: Soft, Non-Tender, No Organomegaly, No Mass Back Exam: Normal Inspection Extremities: Normal Inspection Course - Vital Signs Last Recorded V/S: Last Vital Signs Temp 96.9 F 11/29/20 12:43 Pulse 95 11/29/20 12:43 Resp 16 11/29/20 12:43 BP 135/70 11/29/20 12:43 Pulse Ox 98 11/29/20 12:43 - Orders/Labs/Meds Orders: Active Orders 24 hr Category Date Time Status CULTURE URINE [RM] Stat Lab 11/29/20 12:55 Received Labs: Laboratory Tests 11/29/20 Range/Units 12:55 Urine Color Yellow (Yellow) Urine Appearance Clear (Clear) Urine pH 6.5 (5.0-8.0) Ur Specific [place] 1.015 (1.005-1.030) Urine Protein Negative (Negative) Urine Glucose (UA) Negative (Negative) Urine Ketones Negative (Negative) Urine Occult Blood 1+ H (Negative) Urine Nitrite Negative (Negative) Urine Bilirubin Negative (Negative) Urine Urobilinogen 0.2 (0.2-1.0) Ur Leukocyte Esterase 3+ H (Negative) Urine RBC 5-10 H (0-5) /hpf Urine WBC 30-40 H (0-5) /hpf Ur Squamous Epith Cells 0-5 (0-5) /hpf Urine Bacteria Few (FEW) /hpf Urine Mucus Few (FEW) /hpf - Re-Assessments/Exams Free Text/Narrative Re-Assessment/Exam: 11/29/20 13:21 I ordered a UA and it appears she has a UTI. I will get her on some keflex. Departure - Departure Time of Disposition: 13:25 Disposition: Home, Self-Care 01 Condition: Good Clinical Impression: UTI, Urinary tract infectious disease - Discharge Information *PRESCRIPTION DRUG MONITORING PROGRAM REVIEWED*: Not Applicable *COPY OF PRESCRIPTION DRUG MONITORING REPORT IN PATIENT CHUCKIE: Not Applicable Prescriptions: cephALEXin [Keflex] 500 mg PO BID #10 cap Referrals: Honey Coreas MD [Primary Care Provider] - 1 Week Additional Instructions: Keep drinking plenty of fluids. Take keflex 2 times per day for 5 days. Please return if you are worse such as more pain, nausea, vomiting or fever. Sepsis Event Note (ED) - Evaluation Sepsis Screening Result: No Definite Risk - Focused Exam Vital Signs: Vital Signs Temp Pulse Resp BP Pulse Ox 11/29/20 12:43 96.9 F 95 16 135/70 98 - My Orders Last 24 Hours: My Active Orders 11/29/20 12:55 CULTURE URINE [RM] Stat - Assessment/Plan Last 24 Hours: My Active Orders 11/29/20 12:55 CULTURE URINE [RM] Stat
== END 2020-11-29 13:28 | disposition home or self-care (01) ==
LOC: JD.ED 12:39
DX: N39.0 Urinary tract infection, site not specified (principal); J45.909 Unspecified asthma, uncomplicated; Z79.899 Other long term (current) drug therapy; Z88.0 Allergy status to penicillin; Z72.0 Tobacco use
CPT/HCPCS: 81001; 87086; 87088; 99283

== ENCOUNTER 2021-03-25 16:26 | Emergency (ER) | payer MEDICAID ==
[2021-03-25] MEDS ORDERED: Ondansetron 4 MG Tab.DIS PO ONE (16:49)
--- NOTE | 2021-03-25 16:56 | EDM.PDOC ---
ED HPI GENERAL MEDICAL PROBLEM - General Chief Complaint: Gastrointestinal Problem Stated Complaint: NAUSEA/LOOSE STOOL Time Seen by Provider: 03/25/21 16:45 Source of Information: Reports: Patient, RN Notes Reviewed History Limitations: Reports: No Limitations - History of Present Illness INITIAL COMMENTS - FREE TEXT/NARRATIVE: Patient is a 20-year-old female who presents to the ER her nausea and diarrhea. Patient notes she began with nausea yesterday, so much that she was dry heaving at work, and was sent home from work. She notes that the dry heaving continued this morning, along with multiple bouts of loose stools throughout the day. She states she has been able to drink fluids however she feels quite nauseous when she does so she has not been drinking as much as she thinks she should. She is not having any focal abdomen pain, but notes she is having some tenderness over her epigastrium. The patient notes that her son was recently sick with a vomiting illness as well, and she thinks she could have gotten a bug from him. Her primary care provider is Dr. Coreas. She is having no fevers or chills, cough or shortness of breath. She did take some Pepto-Bismol prior to coming to the ER. Treatments WAREHOUSE LOGISTICS COORDINATOR: Reports: Other (see below) Other Treatments WAREHOUSE LOGISTICS COORDINATOR: pepto, shamika oziel - Related Data Allergies Allergy/AdvReac Type Severity Reaction Status Date / Time Penicillins Allergy Intermediate Hives Verified 03/25/21 16:49 Home Meds: Home Meds FLUoxetine HCl [Prozac] 20 mg PO DAILY 06/29/20 [History] OLANZapine [Olanzapine] 5 mg PO DAILY 06/29/20 [History] hydrOXYzine HCL [Atarax] 10 mg PO Q8H 06/29/20 [History] Albuterol Sulfate [Albuterol Sulfate Hfa] 2 inh IH Q4H PRN 11/29/20 [History] Promethazine [Phenergan] 25 mg PO Q6H PRN #20 tab 03/25/21 [Rx] Past Medical History - Past Health History Medical/Surgical History: Denies Medical/Surgical History Cardiovascular History: Reports: Other (See Below) Other Cardiovascular History: palpitations during Respiratory History: Reports: Asthma Gastrointestinal History: Reports: GERD Genitourinary History: Reports: None INTERNAL COMMUNICATIONS SPECIALIST History: Reports: Spontaneous Other INTERNAL COMMUNICATIONS SPECIALIST History: Patient has an implanted form of progesterone to prevent . It is good for 3 years she reports will not have to be changed until 2019 Musculoskeletal History: Reports: None Neurological History: Reports: None Psychiatric History: Reports: Anxiety, Bipolar, Depression Endocrine/Metabolic History: Reports: None Hematologic History: Reports: None Immunologic History: Reports: None Oncologic (Cancer) History: Reports: None Dermatologic History: Reports: None - Infectious Disease History Infectious Disease History: Reports: None - Past Surgical History Head Surgeries/Procedures: Reports: None HEENT Surgical History: Reports: Oral Surgery Female Surgical History: Reports: None Social & Family History - Family History Family Medical History: No Pertinent Family History Cardiac: Reports: Aneurysm Psychiatric: Reports: Other (See Below) Other Psychiatric Family History: substance abuse - Tobacco Use Tobacco Use Status *Q: Never Tobacco User Second Hand Smoke Exposure: No - Caffeine Use Caffeine Use: Reports: Coffee Other Caffeine Use: de caf - Recreational Drug Use Recreational Drug Use: No - Living Situation & Occupation Living situation: Reports: Single, with Significant Other (Boyfriend), with Family (Son) 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 ED EXAM, GI/ABD - Physical Exam Exam: See Below Exam Limited By: No Limitations General Appearance: Alert, WD/WN, No Apparent Distress Respiratory/Chest: No Respiratory Distress, Lungs Clear, Normal Breath Sounds, No Accessory Muscle Use, Chest Non-Tender Cardiovascular: Normal Peripheral Pulses, Regular Rate, Rhythm, No Edema GI/Abdominal Exam: Normal Bowel Sounds, Soft, No Organomegaly, No Distention, No Mass, Tender (over epigastrium mainly) Extremities: Normal Inspection, Normal Capillary Refill Neurological: Alert, Oriented, Normal Cognition, No Motor/Sensory Deficits Psychiatric: Normal Affect, Normal Mood Skin Exam: Warm, Dry, Intact, Normal Color, No Rash Course - Vital Signs Last Recorded V/S: Last Vital Signs Temp 97.1 F 03/25/21 16:44 Pulse 106 H 03/25/21 16:44 Resp 18 03/25/21 16:44 BP 117/75 03/25/21 16:44 Pulse Ox 96 03/25/21 16:44 Orthostatic Blood Pressure [ 95/48 Standing] Orthostatic Blood Pressure [ 98/63 Sitting] Orthostatic Blood Pressure [ 113/75 Supine] - Orders/Labs/Meds Orders: Active Orders 24 hr Category Date Time Status Orthostatic Vital Signs [RC] ASDIRECTED Care 03/25/21 16:51 Ordered Meds: Medications Discontinued Medications Generic Name Dose Route Start Last Admin Trade Name Koby PRN Reason Stop Dose Admin Ondansetron HCl 4 mg 03/25/21 16:49 03/25/21 17:46 Ondansetron 4 Mg Tab.Dis PO 03/25/21 16:50 4 mg ONETIME ONE Administration - Re-Assessments/Exams Free Text/Narrative Re-Assessment/Exam: 03/25/21 17:14 Patient presents to the ER for her nausea and diarrhea. Since the patient really took some Pepto, we will try to hold off on antidiarrheals at this time. We will however give her some oral Zofran, and take orthostatic vital signs for evaluation. Highly likely the patient did catch a viral gastrointestinal illness from her son. Likely will be sent home with general recommendations and a prescription for Zofran. Departure - Departure Time of Disposition: 17:55 Disposition: Home, Self-Care 01 Condition: Good Clinical Impression: Gastroenteritis - Discharge Information *PRESCRIPTION DRUG MONITORING PROGRAM REVIEWED*: No *COPY OF PRESCRIPTION DRUG MONITORING REPORT IN PATIENT CHUCKIE: No Prescriptions: Promethazine [Phenergan] 25 mg PO Q6H PRN #20 tab PRN Reason: Nausea Instructions: Viral Gastroenteritis, Adult, [id number], Food Choices to Help Relieve Diarrhea, Adult Referrals: Honey Coreas MD [Primary Care Provider] - Forms: ED Department Discharge Additional Instructions: You have been evaluated in the ED for nausea/vomiting/diarrhea. It is likely that this is caused from a viral gastroenteritis. You were given Zofran in the ER, this seemed to help relieve most of your nausea. Due to you being on multiple psychiatric medications we cannot continue this, but have started you on a medication called Phenergan, you may take 1 tablet every 6 hours as needed for ongoing nausea. This tablet is not dissolvable, so you will need to swallow this medication in order for it to work correctly. This medication was electronically sent to the [facility] located near [facility]. Over the next 24-48 hours please try to limit diet to clear liquids and advance as tolerated to a bland diet to alleviate symptoms of nausea/vomiting/diarrhea. You may use loperamide as well for ongoing diarrhea issues, please use per the direction on the back of the bottle, please note that since you have used Pepto- Bismol, you stools might be a little bit darker or look black over the next few days but should get better with time. Please be aware if that you continue to use these medications however it can make you constipated. Please return to the ED if your symptoms should change or worsen. Sepsis Event Note (ED) - Evaluation Sepsis Screening Result: No Definite Risk - Focused Exam Vital Signs: Vital Signs Temp Pulse Resp BP Pulse Ox 03/25/21 16:44 97.1 F 106 H 18 117/75 96 - My Orders Last 24 Hours: My Active Orders 03/25/21 16:51 Orthostatic Vital Signs [RC] ASDIRECTED - Assessment/Plan Last 24 Hours: My Active Orders 03/25/21 16:51 Orthostatic Vital Signs [RC] ASDIRECTED
== END 2021-03-25 18:20 | disposition home or self-care (01) ==
LOC: JD.ED 16:26
DX: K52.9 Noninfective gastroenteritis and colitis, unspecified (principal)
CPT/HCPCS: 99283; A9270

== ENCOUNTER 2021-10-13 00:34 | Emergency (ER) | payer MEDICAID ==
--- NOTE | 2021-10-13 01:10 | EDM.PDOC ---
ED HPI GENERAL MEDICAL PROBLEM - General Chief Complaint: Chest Pain Stated Complaint: [facility] Time Seen by Provider: 10/13/21 00:51 Source of Information: Reports: Patient History Limitations: Reports: No Limitations - History of Present Illness INITIAL COMMENTS - FREE TEXT/NARRATIVE: Ms. Triplett is a pleasant 20-year-old woman who now presents to the ED by EMS with a complaint of chest pain that began around 2300 tonight, while at work. No associated nausea, diaphoresis, or sense of impending doom, however, the patient states that she does have associated dyspnea, rapid palpitations and pain to her left anterior chest, left scapula, and left neck, along with tingling to her left fingertips. 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 The patient states that she has had similar symptoms about every other day for the past 2 years. She has seen both her PCP plus another [facility] provider and was told that she has "tachycardia, dysrhythmia". She will be reevaluated in about 3 weeks. At triage, the patient was found to be hemodynamically stable, afebrile, saturating 100% on room air. She states that she feels nauseated with a headache, but denies having any pain. She appears to be somewhat anxious, although in no acute distress. Prior to the onset of tonight's symptoms, the patient denies having a recent fever, chills, sore throat, ear pain, nasal or sinus congestion, cough, dyspnea, chest pain, palpitations, nausea, vomiting, constipation, diarrhea, abdominal pa in, urinary symptoms, recent weight gain or weight loss, recent bloody bowel movements or black bowel movements, recent joint aches, headaches, or rashes. The patient's PCP is Dr. Honey Coreas. She has received a single Pfizer COVID vaccination, although no influenza vaccination this season. Chest Pain Score (Numeric/FACES): 7 - Related Data Allergies Allergy/AdvReac Type Severity Reaction Status Date / Time Penicillins Allergy Intermediate Hives Verified 10/13/21 00:48 Home Meds: Home Meds Albuterol Sulfate [Albuterol Sulfate Hfa] 2 inh IH Q4H PRN 11/29/20 [History] Past Medical History Respiratory History: Reports: Asthma (suspected, not tested) INTERNAL AUDITOR History: Reports: Spontaneous (x 1) Psychiatric History: Reports: Anxiety (untreated), Bipolar (untreated), Depression (untreated) - Past Surgical History HEENT Surgical History: Reports: Oral Surgery (dental extractions) Social & Family History - Tobacco Use Tobacco Use Status *Q: Never Tobacco User Tobacco Use Within Last Twelve Months: Vaping (Nicotine, daily) - Alcohol Use Alcohol Use History: Yes Alcohol Use Frequency: Socially - Recreational Drug Use Recreational Drug Use: Yes Drug Use in Last 12 Months: No Recreational Drug Type: Reports: Marijuana/Hashish (last smoked 2016) - Living Situation & Occupation Living situation: Reports: Single, with Family (Son) Occupation: Employed ([employer]) ED ROS GENERAL - Review of Systems Review Of Systems: Comprehensive ROS is negative, except as noted in HPI. ED EXAM, GENERAL - Physical Exam Exam: See Below Exam Limited By: No Limitations General Appearance: Alert, No Apparent Distress, Thin Eye Exam: Bilateral Eye: EOMI, Normal Inspection Ears: Normal External Exam, Hearing Grossly Normal Nose: Normal Inspection Throat/Mouth: Normal Inspection, Normal Lips, Normal Voice, No Airway Compromise Head: Atraumatic, Normocephalic Neck: Normal Inspection, Full Range of Motion Respiratory/Chest: No Respiratory Distress, Lungs Clear, Normal Breath Sounds, No Accessory Muscle Use Cardiovascular: Normal Peripheral Pulses, Regular Rate, Rhythm, No Edema, No Gallop, No JVD, No Murmur, No Rub Peripheral Pulses: 3+: Radial (L), Radial (R) GI/Abdominal: Normal Bowel Sounds, Soft, Non-Tender, No Organomegaly, No Distention, No Abnormal Bruit, No Mass Back Exam: Normal Inspection, Full Range of Motion, NT Extremities: Normal Inspection, Normal Range of Motion, No Pedal Edema, Normal Capillary Refill Neurological: Alert, Oriented, Normal Cognition, No Motor/Sensory Deficits Psychiatric: Normal Affect Skin Exam: Warm, Dry, Intact, Normal Color, No Rash #1 Interpretation EKG Date: 10/13/21 Time: 01:17 Rhythm: NSR Rate (Beats/Min): 81 Onia: Normal P-Wave: Present QRS: Normal ST-T: Normal QT: Normal Comparison: No Change (07/03/2020) Course - Vital Signs Last Recorded V/S: Last Vital Signs Temp 36.6 C 12/21/21 00:43 Pulse 81 10/13/21 00:43 Resp 18 10/13/21 00:43 BP 116/75 10/13/21 00:43 Pulse Ox 100 10/13/21 00:43 - Orders/Labs/Meds Labs: Laboratory Tests 10/13/21 10/13/21 10/13/21 Range/Units 01:16 01:16 01:16 Hgb 13.6 (11.2-15.7) gm/dl Hct 39.2 (34.1-44.9) % D-Dimer, Quantitative < 0.19 L (0.19-0.50) mg/L Sodium 140 (136-145) mEq/L Potassium 3.8 (3.5-5.1) mEq/L Chloride 105 (98-107) mEq/L Carbon Dioxide 27 (21-32) mEq/L Anion Gap 11.8 (5-15) BUN 9 (7-18) mg/dL Creatinine 0.8 (0.55-1.02) mg/dL Est Cr Clr Drug Dosing TNP Estimated GFR (MDRD) > 60 (>60) mL/min BUN/Creatinine Ratio 11.3 L (14-18) Glucose 95 (70-99) mg/dL Calcium 9.0 (8.5-10.1) mg/dL Magnesium 2.0 (1.8-2.4) mg/dL Troponin I < 0.017 (0.00-0.056) ng/mL - Re-Assessments/Exams Free Text/Narrative Re-Assessment/Exam: 10/13/21 01:07 I suspect that the patient's symptoms or due to hyperventilation syndrome related to her untreated anxiety, however, to make sure that nothing more sinister occurring, I have ordered a work-up that includes several blood tests and an ECG. 10/13/21 03:00 The patient's H/H are within normal to 30.6/39.2. Her BMP is unremarkable. Her magnesium level is within normal limits at 2.0. Her troponin is undetectably low. Her D-dimer is undetectably low. 10/13/21 03:14 Test results discussed with the patient. As above, today's work-up is completely unremarkable. I will discharge her home to follow-up with Dr. Coreas. Departure - Departure Time of Disposition: 03:15 Disposition: Home, Self-Care 01 Condition: Good Clinical Impression: Rapid palpitations - Discharge Information *PRESCRIPTION DRUG MONITORING PROGRAM REVIEWED*: Not Applicable *COPY OF PRESCRIPTION DRUG MONITORING REPORT IN PATIENT CHUCKIE: Not Applicable Instructions: Palpitations, [id number] Referrals: Honey Coreas MD [Primary Care Provider] - Forms: ED Department Discharge Additional Instructions: You were seen in the emergency room after developing rapid palpitations with shortness of breath, pain to your left chest, left shoulder blade area, and left neck, with tingling to your left fingertips. Work-up in the ER included several blood tests and an ECG. Your entire work-up was unremarkable. Based on your history, physical exam, and ER tests, it is most likely that your symptoms are due to hyperventilation. If your symptoms continue to recur, we recommend that you follow-up with your PCP, Dr. Honey Coreas, to discuss treatment options. If any other problems, please do not hesitate to return to the ER. Sepsis Event Note (ED) - Evaluation Sepsis Screening Result: No Definite Risk
== END 2021-10-13 03:23 | disposition home or self-care (01) ==
LOC: JD.ED 00:34
DX: R00.2 Palpitations (principal); Z88.0 Allergy status to penicillin
CPT/HCPCS: 36415; 80048; 83735; 84484; 85014; 85018; 85379; 93005; 93010; 99284; 99285-25

== ENCOUNTER 2022-05-12 19:25 | Emergency (ER) | payer MEDICAID ==
[2022-05-12] MEDS ORDERED: Sodium Chloride 0.9% 10 ML Syringe FLUSH PRN (19:47)
[2022-05-12] MEDS ORDERED: cefTRIAXone 2 GM in Sodium Chloride 0.9% 100 ML IV ONE (21:34)
[2022-05-12] MEDS ORDERED: cefTRIAXone 2 GM Vial ONE (21:47)
[2022-05-12] MEDS ORDERED: Sodium Chloride 0.9% 100 ML ONE (21:48)
== END 2022-05-12 22:30 | disposition home or self-care (01) ==
LOC: JD.ED 19:25
DX: O20.9 Hemorrhage in early pregnancy, unspecified (principal); Z3A.00 Weeks of gestation of pregnancy not specified; J45.909 Unspecified asthma, uncomplicated; Z88.0 Allergy status to penicillin; Z79.899 Other long term (current) drug therapy; Z87.891 Personal history of nicotine dependence
CPT/HCPCS: 36415; 76817; 81001; 84702; 85025; 86850; 86900; 86901; 87086; 87088; 87186; 96365; 99284; J0696; J3490

== ENCOUNTER 2022-08-27 21:28 | Emergency (ER) | payer MEDICAID | END 2022-08-27 22:38 | disposition home or self-care (01) | LOC: SUPCPDRO 21:28 → JD.ED 21:28 | DX: O98.511 Other viral diseases complicating pregnancy, first trimester (principal); U07.1 COVID-19; O99.511 Diseases of the respiratory system complicating pregnancy, first trimester; J45.909 Unspecified asthma, uncomplicated; Z88.0 Allergy status to penicillin; Z79.899 Other long term (current) drug therapy; Z3A.13 13 weeks gestation of pregnancy | CPT/HCPCS: 99283 ==

== ENCOUNTER 2023-01-31 18:29 | Emergency (ER) | payer MEDICAID ==
[2023-01-31] MEDS ORDERED: Sodium Chloride 0.9% 10 ML Syringe FLUSH PRN (19:16)
== END 2023-02-01 | disposition home or self-care (01) ==
LOC: JD.ED 18:29
DX: R07.89 Other chest pain (principal); Z88.0 Allergy status to penicillin; Z86.16 Personal history of COVID-19
CPT/HCPCS: 36415; 80053; 84484; 85025; 93005; 93010; 99283; 99285

== ENCOUNTER 2023-02-21 08:42 | Inpatient (IN) | payer MEDICAID ==
[~2023-02-21 08:42] MED LIST: Ropivacaine 0.2% PF 2 MG/ML 20 ML SDV ONE
[2023-02-21] MEDS ORDERED: Nalbuphine 10 MG/0.5 ML Syringe IVPUSH PRN (09:12)
[2023-02-21] MEDS ORDERED: Ondansetron 4 MG/2 ML SDV IVPUSH PRN (09:12)
[2023-02-21] MEDS ORDERED: Sodium Chloride 0.9% 10 ML Syringe FLUSH PRN (09:12)
[2023-02-21] MEDS ORDERED: Lactated Ringers 1,000 ML IV SCH (09:15)
[2023-02-21] MEDS ORDERED: Oxytocin/Lactated Ringers 10 UNIT/1,000 ML BAG IV SCH ×2 (09:15)
[2023-02-21] MEDS ORDERED: ePHEDrine 50 MG/ML SDV IVPUSH PRN (13:53)
[2023-02-21] MEDS ORDERED: Bupivacaine/fentaNYL/NS 100 ML Bag EPIDUR PRN (13:53)
[2023-02-21] MEDS ORDERED: fentaNYL 100 MCG/2 ML SDV EPIDUR PRN (13:53)
[2023-02-21] MEDS ORDERED: diphenhydrAMINE 50 MG/ML SDV IVPUSH PRN (13:53)
[2023-02-21] MEDS ORDERED: Benzocaine/Menthol 20%-0.5% Spray 78 GM Cannister TOP PRN (16:58)
[2023-02-21] MEDS ORDERED: Witch Hazel Medicated Pads 40/Jar TOP PRN (16:58)
[2023-02-21] MEDS: Ibuprofen 600 MG Tab PO PRN (19:52)
[2023-02-21] MEDS ORDERED: Sodium Chloride 0.9% 10 ML Syringe FLUSH SCH (21:00)
[2023-02-22] MEDS: Acetaminophen 325 MG Tab PO PRN ×2 (00:39→14:10)
[2023-02-22] MEDS ORDERED: Docusate Sodium 100 MG Cap PO ONE (14:00)
[2023-02-22] MEDS: Ibuprofen 600 MG Tab PO PRN (20:40)
[2023-02-23] MEDS: Ibuprofen 600 MG Tab PO PRN (03:04)
== END 2023-02-23 07:55 | disposition home or self-care (01) | DRG 807 ==
LOC: JD.OB 08:42 → OBSVTOIN 15:05 → JD.OB 15:05
PROVIDERS: ADMIT Obstetrics & Gynecology; ATTEND Obstetrics & Gynecology
PROC: 10907ZC Drainage of Amniotic Fluid, Therapeutic from Products of Conception, Via Natural or Artificial Opening (ICD-10-PCS; principal; 2023-02-21)
PROC: 3E0R3BZ Introduction of Anesthetic Agent into Spinal Canal, Percutaneous Approach (ICD-10-PCS; principal; 2023-02-21)
PROC: 00HU33Z Insertion of Infusion Device into Spinal Canal, Percutaneous Approach (ICD-10-PCS; principal; 2023-02-21)
PROC: 3E033VJ Introduction of Other Hormone into Peripheral Vein, Percutaneous Approach (ICD-10-PCS; principal; 2023-02-21)
PROC: 10E0XZZ Delivery of Products of Conception, External Approach (ICD-10-PCS; principal; 2023-02-21)
DX: O99.52 Diseases of the respiratory system complicating childbirth (principal); Z37.0 Single live birth; J45.909 Unspecified asthma, uncomplicated; O99.344 Other mental disorders complicating childbirth; F41.1 Generalized anxiety disorder; Z3A.39 39 weeks gestation of pregnancy; Z88.0 Allergy status to penicillin; Z98.890 Other specified postprocedural states
CPT/HCPCS: 36415; 59025; 59409; 85027; 86592; 86850; 86900; 86901; A9270-GY; J2590; J2795; J7120

== ENCOUNTER 2023-04-18 04:44 | Emergency (ER) | payer MEDICAID | END 2023-04-18 05:23 | disposition home or self-care (01) | LOC: JD.ED 04:44 | DX: J45.901 Unspecified asthma with (acute) exacerbation (principal); J45.909 Unspecified asthma, uncomplicated; Z88.0 Allergy status to penicillin; Z86.16 Personal history of COVID-19 | CPT/HCPCS: 99283; 99284 ==

== ENCOUNTER 2024-02-01 07:29 | Inpatient (IN) | payer OTHER, MEDICAID ==
[2024-02-01] MEDS ORDERED: Lidocaine 1% 50 ML MDV INJECT PRN (08:11)
[2024-02-01] MEDS ORDERED: Oxytocin/Lactated Ringers 30 UNIT/500 ML BAG IV SCH (08:15)
[2024-02-01 08:55] LABS: BASOPHILS PERCENT AUTO 0.4 % (0.0-1.0); EOSINOPHILS ABSOLUTE AUTO 0.2 K/mm3 (0.0-0.4); EOSINOPHILS PERCENT AUTO 1.7 % (0.0-6.0); HEMATOCRIT 32.4 % (37.0-47.0); HEMOGLOBIN 11.5 gm/dl (12.0-16.0); IMMATURE GRAN ABSOLUTE AUTO 0.12 K/mm3 (0.00-0.05); IMMATURE GRAN PERCENT AUTO 1.1 % (0.0-0.4); LYMPHOCYTES ABSOLUTE AUTO 2.1 K/mm3 (1.0-4.8); LYMPHOCYTES PERCENT AUTO 19.3 % (24.0-44.0); MEAN CORPUSCULAR HEMOGLOBIN 32.5 pg (28.0-32.0); MEAN CORPUSCULAR HGB CONC 35.5 g/dl (32.0-36.0); MEAN CORPUSCULAR VOLUME 91.5 fl (83.0-99.0); MEAN PLATELET VOLUME 9.9 fl (9.4-12.3); MONOCYTES ABSOLUTE AUTO 0.8 K/mm3 (0.0-0.8); MONOCYTES PERCENT AUTO 7.6 % (0.0-8.0); NEUTROPHILS ABSOLUTE AUTO 7.8 K/mm3 (1.8-7.7); NEUTROPHILS PERCENT AUTO 69.9 % (41.0-71.0); PLATELET COUNT,PLT 200 K/mm3 (150-400); RED BLOOD CELL COUNT 3.54 M/mm3 (4.10-5.30); WHITE BLOOD CELL COUNT,WBC 11.11 K/mm3 (3.9-11.3)
[2024-02-01] MEDS ORDERED: Sodium Chloride 0.9% 10 ML Syringe FLUSH SCH (09:00)
[2024-02-01] MEDS: Oxytocin/Lactated Ringers 30 UNIT/500 ML BAG IV SCH (09:07)
[2024-02-01] MEDS: Lactated Ringers 1,000 ML IV SCH (09:07)
[2024-02-01] MEDS: Nalbuphine 10 MG/ML Syringe IVPUSH PRN (13:36)
[2024-02-01] MEDS: Sodium Chloride 0.9% 10 ML Syringe FLUSH PRN (13:37)
[2024-02-01] MEDS ORDERED: Methylergonovine 0.2 MG/1 ML Amp ONE (17:01)
[2024-02-01] MEDS: Methylergonovine 0.2 MG/1 ML Amp IM STA (17:03)
[2024-02-01] MEDS: Ondansetron 4 MG/2 ML SDV IVPUSH PRN (18:04)
[2024-02-01] MEDS: Witch Hazel Medicated Pads 40/Jar TOP PRN (19:32)
[2024-02-01] MEDS: Benzocaine/Menthol 20%-0.5% Spray 78 GM Cannister TOP PRN (19:32)
[2024-02-01] MEDS: Ibuprofen 600 MG Tab PO PRN (20:15)
[2024-02-02 05:44] LABS: HEMATOCRIT 29.5 % (37.0-47.0); HEMOGLOBIN 10.4 gm/dl (12.0-16.0); MEAN CORPUSCULAR HEMOGLOBIN 32.3 pg (28.0-32.0); MEAN CORPUSCULAR HGB CONC 35.3 g/dl (32.0-36.0); MEAN CORPUSCULAR VOLUME 91.6 fl (83.0-99.0); PLATELET COUNT,PLT 190 K/mm3 (150-400); RED BLOOD CELL COUNT 3.22 M/mm3 (4.10-5.30); WHITE BLOOD CELL COUNT,WBC 15.46 K/mm3 (3.9-11.3)
[2024-02-02] MEDS: Acetaminophen 325 MG Tab PO PRN (19:45)
[2024-02-02] MEDS: Docusate Sodium 100 MG Cap PO PRN (19:45)
== END 2024-02-03 10:10 | disposition home or self-care (01) | DRG 807 ==
LOC: JD.OB 07:29 → OBSVTOIN 16:44 → JD.OB 16:44
PROVIDERS: ADMIT Obstetrics & Gynecology; ATTEND Obstetrics & Gynecology
PROC: 10E0XZZ Delivery of Products of Conception, External Approach (ICD-10-PCS; principal; 2024-02-01)
PROC: 10907ZC Drainage of Amniotic Fluid, Therapeutic from Products of Conception, Via Natural or Artificial Opening (ICD-10-PCS; 2024-02-01)
PROC: 3E033VJ Introduction of Other Hormone into Peripheral Vein, Percutaneous Approach (ICD-10-PCS; 2024-02-01)
DX: O80 Encounter for full-term uncomplicated delivery (principal); Z37.0 Single live birth; Z3A.39 39 weeks gestation of pregnancy; Z86.16 Personal history of COVID-19; Z87.891 Personal history of nicotine dependence
CPT/HCPCS: 36415; 59025; 59409; 85025; 85027; 86592; 86850; 86900; 86901; A9270-GY; J2210; J2300; J2405; J3490; J7120; J7999

== ENCOUNTER 2024-02-11 12:17 | Emergency (ER) | payer OTHER, MEDICAID ==
[2024-02-11 12:54] LABS: BASOPHILS PERCENT AUTO 0.2 % (0.0-1.0); EOSINOPHILS ABSOLUTE AUTO 0.2 K/mm3 (0.0-0.4); EOSINOPHILS PERCENT AUTO 1.5 % (0.0-6.0); HEMOGLOBIN 11.3 gm/dl (12.0-16.0); IMMATURE GRAN ABSOLUTE AUTO 0.04 K/mm3 (0.00-0.05); IMMATURE GRAN PERCENT AUTO 0.4 % (0.0-0.4); LYMPHOCYTES ABSOLUTE AUTO 1.6 K/mm3 (1.0-4.8); LYMPHOCYTES PERCENT AUTO 16.4 % (24.0-44.0); MEAN CORPUSCULAR HEMOGLOBIN 32.2 pg (28.0-32.0); MEAN CORPUSCULAR HGB CONC 35.3 g/dl (32.0-36.0); MEAN CORPUSCULAR VOLUME 91.2 fl (83.0-99.0); MEAN PLATELET VOLUME 8.9 fl (9.4-12.3); MONOCYTES ABSOLUTE AUTO 0.7 K/mm3 (0.0-0.8); MONOCYTES PERCENT AUTO 6.9 % (0.0-8.0); NEUTROPHILS ABSOLUTE AUTO 7.4 K/mm3 (1.8-7.7); NEUTROPHILS PERCENT AUTO 74.6 % (41.0-71.0); RED BLOOD CELL COUNT 3.51 M/mm3 (4.10-5.30); WHITE BLOOD CELL COUNT,WBC 9.93 K/mm3 (3.9-11.3)
[2024-02-11 12:56] LABS: PLATELET COUNT,PLT 286 K/mm3 (150-400)
[2024-02-11] MEDS: Lidocaine/Epineph/Tetracaine 3 ML Syringe TOP ONE (12:56)
[2024-02-11 13:25] LABS: A/G RATIO 0.8 (1-2); ANION GAP 11.8 (5-15); BILIRUBIN TOTAL 0.5 mg/dL (0.2-1.0); CALCIUM 8.9 mg/dL (8.5-10.1); CREATININE 0.8 mg/dL (0.55-1.02); EST CRCL DRUG DOSING (CG) 93.23 mL/min; POTASSIUM,K 3.8 mEq/L (3.5-5.1); PROTEIN TOTAL,TP 6.8 g/dl (6.4-8.2)
[2024-02-11] MEDS ORDERED: Sulfamethoxazole/Trimethoprim 800-160 MG Tab PO ONE (13:38)
== END 2024-02-11 14:13 | disposition home or self-care (01) ==
LOC: JD.ED 12:17
DX: L08.9 Local infection of the skin and subcutaneous tissue, unspecified (principal); J45.909 Unspecified asthma, uncomplicated; B96.89 Other specified bacterial agents as the cause of diseases classified elsewhere; Z88.0 Allergy status to penicillin; Z79.899 Other long term (current) drug therapy; Z86.16 Personal history of COVID-19
CPT/HCPCS: 36415; 80053; 85025; 87070; 87077; 87186; 87205; 99283; A9270

== ENCOUNTER 2024-02-17 19:59 | Emergency (ER) | payer OTHER, MEDICAID | END 2024-02-17 22:13 | disposition home or self-care (01) | LOC: JD.ED 19:59 | DX: S81.801A Unspecified open wound, right lower leg, initial encounter (principal); A49.01 Methicillin susceptible Staphylococcus aureus infection, unspecified site; J45.909 Unspecified asthma, uncomplicated; Z79.51 Long term (current) use of inhaled steroids; Z86.16 Personal history of COVID-19; Z79.899 Other long term (current) drug therapy; Z88.0 Allergy status to penicillin; X58.XXXA Exposure to other specified factors, initial encounter | CPT/HCPCS: 99283 ==

== ENCOUNTER 2024-02-26 09:32 | Emergency (ER) | payer OTHER, MEDICAID ==
[2024-02-26] MEDS ORDERED: Sodium Chloride 0.9% 10 ML Syringe FLUSH PRN (09:55)
[2024-02-26 10:04] LABS: BASOPHILS PERCENT AUTO 0.6 % (0.0-1.0); EOSINOPHILS ABSOLUTE AUTO 0.3 K/mm3 (0.0-0.4); EOSINOPHILS PERCENT AUTO 3.9 % (0.0-6.0); HEMATOCRIT 37.5 % (37.0-47.0); HEMOGLOBIN 12.6 gm/dl (12.0-16.0); IMMATURE GRAN ABSOLUTE AUTO 0.02 K/mm3 (0.00-0.05); IMMATURE GRAN PERCENT AUTO 0.3 % (0.0-0.4); LYMPHOCYTES ABSOLUTE AUTO 2.3 K/mm3 (1.0-4.8); LYMPHOCYTES PERCENT AUTO 35.2 % (24.0-44.0); MEAN CORPUSCULAR HEMOGLOBIN 30.9 pg (28.0-32.0); MEAN CORPUSCULAR HGB CONC 33.6 g/dl (32.0-36.0); MEAN CORPUSCULAR VOLUME 91.9 fl (83.0-99.0); MEAN PLATELET VOLUME 9.3 fl (9.4-12.3); MONOCYTES ABSOLUTE AUTO 0.4 K/mm3 (0.0-0.8); MONOCYTES PERCENT AUTO 6.5 % (0.0-8.0); NEUTROPHILS ABSOLUTE AUTO 3.4 K/mm3 (1.8-7.7); NEUTROPHILS PERCENT AUTO 53.5 % (41.0-71.0); PLATELET COUNT,PLT 336 K/mm3 (150-400); RED BLOOD CELL COUNT 4.08 M/mm3 (4.10-5.30); WHITE BLOOD CELL COUNT,WBC 6.44 K/mm3 (3.9-11.3)
[2024-02-26 10:25] LABS: A/G RATIO 1.1 (1-2); ALANINE AMINOTRANSFERASE,ALT 19 U/L (14-59); ALBUMIN 3.8 g/dl (3.4-5.0); ALKALINE PHOSPHATASE 84 U/L (46-116); ANION GAP 16.6 (5-15); ASPARTATE AMNIOTRANSFERASE,AST 12 U/L (15-37); BILIRUBIN TOTAL 0.3 mg/dL (0.2-1.0); BLOOD UREA NITROGEN,BUN 7 mg/dL (7-18); BUN/CREATININE RATIO 6.4 (14-18); CALCIUM 8.9 mg/dL (8.5-10.1); CARBON DIOXIDE,CO2 25 mEq/L (21-32); CHLORIDE,CL 101 mEq/L (98-107); CREATININE 1.1 mg/dL (0.55-1.02); EST CRCL DRUG DOSING (CG) 68.81 mL/min; ESTIMATED GFR 72 mL/min (>60); GLUCOSE RANDOM 84 mg/dL (70-99); MAGNESIUM 1.8 mg/dL (1.8-2.4); POTASSIUM,K 3.6 mEq/L (3.5-5.1); PROTEIN TOTAL,TP 7.3 g/dl (6.4-8.2); SODIUM,NA 139 mEq/L (136-145)
[2024-02-26 10:49] LABS: TROPONIN I HIGH SENSITIVITY < 4 pg/mL (<=51)
== END 2024-02-26 11:11 | disposition home or self-care (01) ==
LOC: JD.ED 09:32
DX: R07.89 Other chest pain (principal); J45.909 Unspecified asthma, uncomplicated; Z88.0 Allergy status to penicillin; Z79.899 Other long term (current) drug therapy; Z86.16 Personal history of COVID-19
CPT/HCPCS: 36415; 71045; 71045-26; 80053; 83735; 84484; 85025; 85379; 93005; 93010; 99282; 99285

== ENCOUNTER 2024-06-11 22:12 | Emergency (ER) | payer BC, MEDICAID ==
[2024-06-11 23:18] LABS: BASOPHILS PERCENT AUTO 0.3 % (0.0-1.0); EOSINOPHILS ABSOLUTE AUTO 0.4 K/mm3 (0.0-0.4); EOSINOPHILS PERCENT AUTO 6.7 % (0.0-6.0); HEMATOCRIT 34.1 % (37.0-47.0); HEMOGLOBIN 11.6 gm/dl (12.0-16.0); IMMATURE GRAN ABSOLUTE AUTO 0.01 K/mm3 (0.00-0.05); IMMATURE GRAN PERCENT AUTO 0.2 % (0.0-0.4); LYMPHOCYTES ABSOLUTE AUTO 2.6 K/mm3 (1.0-4.8); LYMPHOCYTES PERCENT AUTO 38.9 % (24.0-44.0); MEAN CORPUSCULAR HEMOGLOBIN 29.4 pg (28.0-32.0); MEAN CORPUSCULAR VOLUME 86.3 fl (83.0-99.0); MONOCYTES ABSOLUTE AUTO 0.4 K/mm3 (0.0-0.8); MONOCYTES PERCENT AUTO 5.3 % (0.0-8.0); NEUTROPHILS ABSOLUTE AUTO 3.2 K/mm3 (1.8-7.7); NEUTROPHILS PERCENT AUTO 48.6 % (41.0-71.0); PLATELET COUNT,PLT 236 K/mm3 (150-400); RED BLOOD CELL COUNT 3.95 M/mm3 (4.10-5.30); WHITE BLOOD CELL COUNT,WBC 6.55 K/mm3 (3.9-11.3)
[2024-06-11 23:49] LABS: A/G RATIO 1.3 (1-2); ALANINE AMINOTRANSFERASE,ALT 23 U/L (14-59); ALBUMIN 3.6 g/dl (3.4-5.0); ALKALINE PHOSPHATASE 41 U/L (46-116); ANION GAP 13.6 (5-15); ASPARTATE AMNIOTRANSFERASE,AST 15 U/L (15-37); BILIRUBIN TOTAL 0.4 mg/dL (0.2-1.0); BLOOD UREA NITROGEN,BUN 9 mg/dL (7-18); CALCIUM 8.4 mg/dL (8.5-10.1); CARBON DIOXIDE,CO2 23 mEq/L (21-32); CHLORIDE,CL 107 mEq/L (98-107); CREATININE 0.9 mg/dL (0.55-1.02); ESTIMATED GFR 92 mL/min (>60); GLUCOSE RANDOM 92 mg/dL (70-99); MAGNESIUM 1.7 mg/dL (1.8-2.4); POTASSIUM,K 3.6 mEq/L (3.5-5.1); PROTEIN TOTAL,TP 6.4 g/dl (6.4-8.2); SODIUM,NA 140 mEq/L (136-145)
[2024-06-11 23:59] LABS: TROPONIN I HIGH SENSITIVITY < 4 pg/mL (<=51)
== END 2024-06-12 00:46 | disposition home or self-care (01) ==
LOC: JD.ED 22:12
DX: R11.2 Nausea with vomiting, unspecified (principal); R19.7 Diarrhea, unspecified; T43.225A Adverse effect of selective serotonin reuptake inhibitors, initial encounter; K21.9 Gastro-esophageal reflux disease without esophagitis; J45.909 Unspecified asthma, uncomplicated; Z86.16 Personal history of COVID-19; Z87.891 Personal history of nicotine dependence; Z79.899 Other long term (current) drug therapy; Z88.0 Allergy status to penicillin
CPT/HCPCS: 36415; 80053; 83735; 84484; 85025; 93005; 93010; 99283; 99284

== ENCOUNTER 2024-09-02 09:19 | Emergency (ER) | payer BC ==
[2024-09-02 09:50] LABS: APPEARANCE,URINE TURBID (Clear); BILIRUBIN,URINE NEGATIVE (Negative); COLOR,URINE YELLOW (Yellow); GLUCOSE,URINE NEGATIVE (Negative); KETONES,URINE 3+ (Negative); LEUKOCYTE ESTERASE,URINE 2+ (Negative); NITRITE,URINE NEGATIVE (Negative); OCCULT BLOOD,URINE 3+ (Negative); PROTEIN,URINE 2+ (Negative); UROBILINOGEN,URINE >=8.0 (0.2-1.0)
[2024-09-02 10:21] LABS: EPITHELIAL CELLS,URINE 0-5 /hpf (0-5); RBC,URINE TOO NUMEROUS TO CNT /hpf (0-5); WBC,URINE TOO NUMEROUS TO CNT /hpf (0-5)
[2024-09-02 10:23] LABS: MUCUS,URINE FEW /hpf (FEW)
[2024-09-02 10:25] LABS: BACTERIA,URINE MODERATE /hpf (FEW)
== END 2024-09-02 12:10 | disposition home or self-care (01) ==
LOC: JD.ED 09:19
DX: N12 Tubulo-interstitial nephritis, not specified as acute or chronic (principal); Z32.02 Encounter for pregnancy test, result negative; J45.909 Unspecified asthma, uncomplicated; Z86.16 Personal history of COVID-19; Z88.0 Allergy status to penicillin; Z79.51 Long term (current) use of inhaled steroids; Z79.899 Other long term (current) drug therapy
CPT/HCPCS: 81001; 81025; 87086; 99283

== ENCOUNTER 2024-09-07 04:13 | Emergency (ER) | payer BC ==
[2024-09-07 04:43] LABS: BASOPHILS PERCENT AUTO 0.5 % (0.0-1.0); EOSINOPHILS ABSOLUTE AUTO 0.2 K/mm3 (0.0-0.4); EOSINOPHILS PERCENT AUTO 3.2 % (0.0-6.0); HEMATOCRIT 38.7 % (37.0-47.0); HEMOGLOBIN 13.6 gm/dl (12.0-16.0); IMMATURE GRAN ABSOLUTE AUTO 0.01 K/mm3 (0.00-0.05); IMMATURE GRAN PERCENT AUTO 0.2 % (0.0-0.4); LYMPHOCYTES ABSOLUTE AUTO 1.9 K/mm3 (1.0-4.8); LYMPHOCYTES PERCENT AUTO 29.5 % (24.0-44.0); MEAN CORPUSCULAR HEMOGLOBIN 30.6 pg (28.0-32.0); MEAN CORPUSCULAR HGB CONC 35.1 g/dl (32.0-36.0); MONOCYTES ABSOLUTE AUTO 0.4 K/mm3 (0.0-0.8); MONOCYTES PERCENT AUTO 5.5 % (0.0-8.0); NEUTROPHILS ABSOLUTE AUTO 3.9 K/mm3 (1.8-7.7); NEUTROPHILS PERCENT AUTO 61.1 % (41.0-71.0); PLATELET COUNT,PLT 225 K/mm3 (150-400); RED BLOOD CELL COUNT 4.45 M/mm3 (4.10-5.30); WHITE BLOOD CELL COUNT,WBC 6.33 K/mm3 (3.9-11.3)
[2024-09-07 04:44] LABS: APPEARANCE,URINE CLEAR (Clear); BILIRUBIN,URINE NEGATIVE (Negative); COLOR,URINE YELLOW (Yellow); GLUCOSE,URINE NEGATIVE (Negative); KETONES,URINE 1+ (Negative); LEUKOCYTE ESTERASE,URINE NEGATIVE (Negative); NITRITE,URINE NEGATIVE (Negative); OCCULT BLOOD,URINE NEGATIVE (Negative); PROTEIN,URINE 1+ (Negative); UROBILINOGEN,URINE 0.2 (0.2-1.0)
[2024-09-07] MEDS: Iopamidol 612 MG/ML 100 ML Bottle IVPUSH ONE (04:55)
[2024-09-07] MEDS: Sodium Chloride 0.9% 1,000 ML IV ONE (05:00)
[2024-09-07 05:12] LABS: LACTIC ACID 0.4 mmol/L (0.4-2.0)
[2024-09-07 05:18] LABS: A/G RATIO 1.2 (1-2); ALBUMIN 4.1 g/dl (3.4-5.0); ANION GAP 13.8 (5-15); BILIRUBIN TOTAL 0.3 mg/dL (0.2-1.0); BUN/CREATININE RATIO 8.9 (14-18); CALCIUM 8.9 mg/dL (8.5-10.1); CREATININE 0.9 mg/dL (0.55-1.02); EST CRCL DRUG DOSING (CG) 84.23 mL/min; MAGNESIUM 1.8 mg/dL (1.8-2.4); POTASSIUM,K 3.8 mEq/L (3.5-5.1); PROTEIN TOTAL,TP 7.6 g/dl (6.4-8.2)
[2024-09-07 05:43] LABS: BACTERIA,URINE FEW /hpf (FEW); EPITHELIAL CELLS,URINE 0-5 /hpf (0-5); MUCUS,URINE MODERATE /hpf (FEW); RBC,URINE 0-5 /hpf (0-5)
[2024-09-07] MEDS: cefTRIAXone 2 GM in Sodium Chloride 0.9% 100 ML IV ONE ×2 (06:54→07:29)
[2024-09-07] MEDS: Sodium Chloride 0.9% 10 ML Syringe FLUSH PRN (07:26)
[2024-09-07] MEDS: cefTRIAXone 1 GM in Sodium Chloride 0.9% 100 ML IV ONE (07:29)
== END 2024-09-07 08:04 | disposition home or self-care (01) ==
LOC: JD.ED 04:13
DX: N12 Tubulo-interstitial nephritis, not specified as acute or chronic (principal); J45.909 Unspecified asthma, uncomplicated; Z86.16 Personal history of COVID-19; Z79.899 Other long term (current) drug therapy; Z88.0 Allergy status to penicillin
CPT/HCPCS: 36415; 74176; 74176-26; 80053; 81001; 83605; 83690; 83735; 85025; 96361; 96365; 99284-25; J0696; J3490; J7030

== ENCOUNTER 2024-11-03 10:50 | Emergency (ER) | payer BC ==
[2024-11-03 11:36] LABS: BASOPHILS PERCENT AUTO 0.2 % (0.0-1.0); EOSINOPHILS ABSOLUTE AUTO 0.2 K/mm3 (0.0-0.4); EOSINOPHILS PERCENT AUTO 2.4 % (0.0-6.0); HEMOGLOBIN 13.4 gm/dl (12.0-16.0); IMMATURE GRAN ABSOLUTE AUTO 0.02 K/mm3 (0.00-0.05); IMMATURE GRAN PERCENT AUTO 0.3 % (0.0-0.4); LYMPHOCYTES PERCENT AUTO 30.7 % (24.0-44.0); MEAN CORPUSCULAR HEMOGLOBIN 30.6 pg (28.0-32.0); MEAN CORPUSCULAR HGB CONC 34.4 g/dl (32.0-36.0); MEAN PLATELET VOLUME 10.1 fl (9.4-12.3); MONOCYTES ABSOLUTE AUTO 0.4 K/mm3 (0.0-0.8); MONOCYTES PERCENT AUTO 6.6 % (0.0-8.0); NEUTROPHILS ABSOLUTE AUTO 3.9 K/mm3 (1.8-7.7); NEUTROPHILS PERCENT AUTO 59.8 % (41.0-71.0); PLATELET COUNT,PLT 295 K/mm3 (150-400); RED BLOOD CELL COUNT 4.38 M/mm3 (4.10-5.30); WHITE BLOOD CELL COUNT,WBC 6.55 K/mm3 (3.9-11.3)
[2024-11-03 11:37] LABS: APPEARANCE,URINE CLEAR (Clear); BILIRUBIN,URINE NEGATIVE (Negative); COLOR,URINE YELLOW (Yellow); GLUCOSE,URINE NEGATIVE (Negative); KETONES,URINE TRACE (Negative); LEUKOCYTE ESTERASE,URINE NEGATIVE (Negative); NITRITE,URINE NEGATIVE (Negative); OCCULT BLOOD,URINE NEGATIVE (Negative); PROTEIN,URINE NEGATIVE (Negative); UROBILINOGEN,URINE 0.2 (0.2-1.0)
[2024-11-03] MEDS: Sodium Chloride 0.9% 10 ML Syringe FLUSH PRN (11:38)
[2024-11-03] MEDS: Sodium Chloride 0.9% 1,000 ML IV STA (11:39)
[2024-11-03] MEDS: HYDROmorphone 0.5 MG/0.5 ML Syringe IVPUSH ONE (11:39)
[2024-11-03 12:02] LABS: A/G RATIO 1.1 (1-2); ALBUMIN 3.8 g/dl (3.4-5.0); ANION GAP 14.7 (5-15); BILIRUBIN TOTAL 0.4 mg/dL (0.2-1.0); BUN/CREATININE RATIO 12.5 (14-18); CALCIUM 8.8 mg/dL (8.5-10.1); CREATININE 0.8 mg/dL (0.55-1.02); EST CRCL DRUG DOSING (CG) 90.9 mL/min; POTASSIUM,K 3.7 mEq/L (3.5-5.1); PROTEIN TOTAL,TP 7.3 g/dl (6.4-8.2)
[2024-11-03] MEDS: Ondansetron 4 MG/2 ML SDV IVPUSH ONE (13:54)
== END 2024-11-03 13:55 | disposition home or self-care (01) ==
LOC: JD.ED 10:50
DX: O03.4 Incomplete spontaneous abortion without complication (principal); Z88.0 Allergy status to penicillin; Z79.899 Other long term (current) drug therapy; Z86.16 Personal history of COVID-19; Z3A.00 Weeks of gestation of pregnancy not specified
CPT/HCPCS: 36415; 76817; 80053; 81003; 84702; 85025; 86900; 86901; 96374; 96375; 99284; J2405; J7030

== ENCOUNTER 2024-12-16 10:02 | Emergency (ER) | payer BC ==
[2024-12-16] MEDS: Ketorolac 60 MG/2 ML SDV IM ONE (11:20)
[2024-12-16] MEDS: HYDROmorphone 1 MG/ML Syringe IM ONE (11:20)
== END 2024-12-16 12:42 | disposition home or self-care (01) ==
LOC: JD.ED 10:02
DX: M26.601 Right temporomandibular joint disorder, unspecified (principal); J45.909 Unspecified asthma, uncomplicated; Z86.16 Personal history of COVID-19; Z88.0 Allergy status to penicillin; Z88.2 Allergy status to sulfonamides; Z79.51 Long term (current) use of inhaled steroids; Z79.899 Other long term (current) drug therapy
CPT/HCPCS: 70486; 96372; 99283; J1171; J1885

== ENCOUNTER 2025-04-24 20:13 | Inpatient (IN) | payer BC ==
[2025-04-24] MEDS: Sodium Chloride 0.9% 10 ML Syringe FLUSH PRN (20:31)
[2025-04-24 20:33] LABS: BASOPHILS ABSOLUTE AUTO 0.0 K/mm3 (0.0-0.2); BASOPHILS PERCENT AUTO 0.3 % (0.0-1.0); EOSINOPHILS ABSOLUTE AUTO 0.5 K/mm3 (0.0-0.4); EOSINOPHILS PERCENT AUTO 5.0 % (0.0-6.0); IMMATURE GRAN ABSOLUTE AUTO 0.02 K/mm3 (0.00-0.05); IMMATURE GRAN PERCENT AUTO 0.2 % (0.0-0.4); LYMPHOCYTES ABSOLUTE AUTO 2.1 K/mm3 (1.0-4.8); LYMPHOCYTES PERCENT AUTO 22.1 % (24.0-44.0); MEAN PLATELET VOLUME 10.4 fl (9.4-12.3); MONOCYTES ABSOLUTE AUTO 0.6 K/mm3 (0.0-0.8); MONOCYTES PERCENT AUTO 6.1 % (0.0-8.0); NEUTROPHILS ABSOLUTE AUTO 6.4 K/mm3 (1.8-7.7); NEUTROPHILS PERCENT AUTO 66.3 % (41.0-71.0); NRBC ABSOLUTE 0.00 (0.00-0.02); NRBC PERCENT 0.0 % (0.0-0.2); PLATELET COUNT,PLT 227 K/mm3 (150-400); RED BLOOD CELL COUNT 4.03 M/mm3 (4.10-5.30); WHITE BLOOD CELL COUNT,WBC 9.68 K/mm3 (3.9-11.3)
[2025-04-24 21:03] LABS: A/G RATIO 1.0 (1-2); ALANINE AMINOTRANSFERASE,ALT 20 U/L (14-59); BLOOD UREA NITROGEN,BUN 15 mg/dL (7-18); CARBON DIOXIDE,CO2 26 mEq/L (21-32); CHLORIDE,CL 106 mEq/L (98-107); CREATININE 0.9 mg/dL (0.55-1.02); ESTIMATED GFR 92 mL/min (>60); GLUCOSE RANDOM 124 mg/dL (70-99); POTASSIUM,K 3.5 mEq/L (3.5-5.1); PROTEIN TOTAL,TP 6.7 g/dl (6.4-8.2); SODIUM,NA 142 mEq/L (136-145)
[2025-04-24 21:16] LABS: ASPARTATE AMNIOTRANSFERASE,AST 19 U/L (15-37); BILIRUBIN TOTAL 0.3 mg/dL (0.2-1.0)
[2025-04-24] MEDS: Iopamidol 612 MG/ML 100 ML Bottle IVPUSH ONE (21:16)
[2025-04-24 21:46] LABS: APPEARANCE,URINE CLEAR (Clear); GLUCOSE,URINE NEGATIVE (Negative); OCCULT BLOOD,URINE NEGATIVE (Negative)
[2025-04-24] MEDS: Lactated Ringers 1,000 ML IV SCH (23:40)
[2025-04-25 04:35] LABS: BASOPHILS ABSOLUTE AUTO 0.0 K/mm3 (0.0-0.2); BASOPHILS PERCENT AUTO 0.3 % (0.0-1.0); EOSINOPHILS ABSOLUTE AUTO 0.3 K/mm3 (0.0-0.4); EOSINOPHILS PERCENT AUTO 3.1 % (0.0-6.0); IMMATURE GRAN ABSOLUTE AUTO 0.04 K/mm3 (0.00-0.05); IMMATURE GRAN PERCENT AUTO 0.4 % (0.0-0.4); LYMPHOCYTES ABSOLUTE AUTO 2.6 K/mm3 (1.0-4.8); LYMPHOCYTES PERCENT AUTO 25.0 % (24.0-44.0); MEAN PLATELET VOLUME 10.4 fl (9.4-12.3); MONOCYTES ABSOLUTE AUTO 0.7 K/mm3 (0.0-0.8); MONOCYTES PERCENT AUTO 6.4 % (0.0-8.0); NEUTROPHILS ABSOLUTE AUTO 6.7 K/mm3 (1.8-7.7); NEUTROPHILS PERCENT AUTO 64.8 % (41.0-71.0); NRBC ABSOLUTE 0.00 (0.00-0.02); NRBC PERCENT 0.0 % (0.0-0.2); PLATELET COUNT,PLT 181 K/mm3 (150-400); RED BLOOD CELL COUNT 3.58 M/mm3 (4.10-5.30); WHITE BLOOD CELL COUNT,WBC 10.38 K/mm3 (3.9-11.3)
[2025-04-25 04:50] LABS: BLOOD UREA NITROGEN,BUN 10.0 mg/dL (7-18); CARBON DIOXIDE,CO2 27.0 mEq/L (21-32); CHLORIDE,CL 105.0 mEq/L (98-107); CREATININE 0.7 mg/dL (0.55-1.02); EST CRCL DRUG DOSING (CG) 105.69 mL/min; ESTIMATED GFR 124.0 mL/min (>60); GLUCOSE RANDOM 102.0 mg/dL (70-99); POTASSIUM,K 3.9 mEq/L (3.5-5.1); SODIUM,NA 138.0 mEq/L (136-145)
[2025-04-25] MEDS: Ondansetron 4 MG Tab.DIS PO PRN (07:39)
[2025-04-25 15:30] LABS: TROPONIN I HIGH SENSITIVITY < 4 pg/mL (<=51); TSH 1.397 uIU/mL (0.358-3.74)
[2025-04-26 04:18] LABS: MEAN PLATELET VOLUME 10.4 fl (9.4-12.3); NRBC ABSOLUTE 0.00 (0.00-0.02); NRBC PERCENT 0.0 % (0.0-0.2); PLATELET COUNT,PLT 161 K/mm3 (150-400); RED BLOOD CELL COUNT 3.57 M/mm3 (4.10-5.30); WHITE BLOOD CELL COUNT,WBC 5.52 K/mm3 (3.9-11.3)
[2025-04-26 04:31] LABS: BLOOD UREA NITROGEN,BUN 6.0 mg/dL (7-18); CARBON DIOXIDE,CO2 26.0 mEq/L (21-32); CHLORIDE,CL 107.0 mEq/L (98-107); CREATININE 0.7 mg/dL (0.55-1.02); EST CRCL DRUG DOSING (CG) 107.37 mL/min; ESTIMATED GFR 124.0 mL/min (>60); GLUCOSE RANDOM 103.0 mg/dL (70-99); POTASSIUM,K 4.0 mEq/L (3.5-5.1); SODIUM,NA 140.0 mEq/L (136-145)
== END 2025-04-26 10:59 | disposition home or self-care (01) | DRG 930 ==
LOC: JD.ED 20:13 → JD.MS 22:55
PROVIDERS: ADMIT Surgery; ATTEND Surgery
DX: S27.0XXA Traumatic pneumothorax, initial encounter (principal); S36.039A Unspecified laceration of spleen, initial encounter; S22.32XA Fracture of one rib, left side, initial encounter for closed fracture; J45.909 Unspecified asthma, uncomplicated; K21.9 Gastro-esophageal reflux disease without esophagitis; F41.9 Anxiety disorder, unspecified; F32.A Depression, unspecified; F43.12 Post-traumatic stress disorder, chronic; D50.9 Iron deficiency anemia, unspecified; D75.A Glucose-6-phosphate dehydrogenase (G6PD) deficiency without anemia; Z88.0 Allergy status to penicillin; Z86.16 Personal history of COVID-19; Z88.8 Allergy status to other drugs, medicaments and biological substances; Z79.899 Other long term (current) drug therapy; Z88.2 Allergy status to sulfonamides; Z98.890 Other specified postprocedural states
CPT/HCPCS: 36415; 70450; 70450-26; 71045; 71045-26; 71260; 71260-26; 72170; 72170-26; 74177; 74177-26; 80048; 80053; 81003; 82947; 83690; 84443; 84484; 84703; 85014; 85018; 85025; 85027; 86850; 86900; 86901; 93005; 93010; 93306; 94760; 94762; 99285; A9270-GY; J1171; J7030; J7120; Q9967